=== PATIENT | female | born 1990 | race Caucasian/White ===

== ENCOUNTER 2016-09-17 17:43 | Emergency (ER) | payer OTHER ==
[2016-09-17 18:51] LABS: BASO % 0.4 % (0.0-1.0); EOS % 0.9 % (0.0-3.0); LARGE UNSTAINED CELL # 0.1 K/mm3 (0.0-0.4); LARGE UNSTAINED CELL % 1.8 % (0.0-4.0); LYMPH # 2.1 K/mm3 (1.5-6.5); LYMPH % 35.7 % (24.0-44.0); MEAN CORPUSCULAR HEMOGLOBIN 29.4 pg (27.0-33.0); MEAN CORPUSCULAR HGB CONC 33.2 g/dl (32.0-36.5); MEAN CORPUSCULAR VOLUME 88.7 fl (80.0-96.0); MONO # 0.3 K/mm3 (0.0-0.8); MONO % 4.5 % (0.0-5.0); NEUTROPHILS # 3.3 K/mm3 (1.8-7.7); NEUTROPHILS % 56.7 % (36.0-66.0); PLATELET COUNT, AUTOMATED 285 k/mm3 (150-450); RED CELL DISTRIBUTION WIDTH 11.5 % (11.5-14.5); WHITE BLOOD COUNT 5.8 K/mm3 (4.0-10.0)
[2016-09-17 19:19] LABS: ANION GAP 9 MEQ/L (8-16); BLOOD UREA NITROGEN 10 MG/DL (7-18); CALCIUM LEVEL 9.3 MG/DL (8.5-10.1); CARBON DIOXIDE LEVEL 27 MEQ/L (21-32); CHLORIDE LEVEL 108 MEQ/L (98-107); CREATININE FOR GFR 0.69 MG/DL (0.55-1.02); FREE T4 1.18 NG/DL (0.76-1.46); GLOMERULAR FILTRATION RATE > 60.0 (>60); GLUCOSE, FASTING 91 MG/DL (70-105); SODIUM LEVEL 144 MEQ/L (136-145)
[2016-09-17 19:30] LABS: ALBUMIN 4.2 GM/DL (3.2-5.2); ALBUMIN/GLOBULIN RATIO 1.31 (1.00-1.93); ALKALINE PHOSPHATASE 55 U/L (45-117); ALT/SGPT 15 U/L (12-78); AMYLASE 42 U/L (25-115); AST/SGOT 7 U/L (15-37); BILIRUBIN,DIRECT < 0.1 MG/DL (0.0-0.2); BILIRUBIN,TOTAL 0.3 MG/DL (0.2-1.0); TOTAL PROTEIN 7.4 GM/DL (6.4-8.2)
[2016-09-17 19:53] LABS: CONTROL LINE HCG INT CTR LINE PRESENT
--- NOTE | 2016-09-17 20:26 | EDDOCDS ---
Nurse's Notes [facility] Name: Cinthia Powers Age: 26 yrs Sex: Female : 1990 Arrival Date: 09/17/2016 Time: 17:43 Bed 15 Private MD: Alisha [facility] – [place] Diagnosis: Palpitations Presentation: 09/17 17:48 Presenting complaint: Patient states: "I have a lot of discomfort in my chest, I'm jc4 having shortness of breath, and feel sick to my stomach and I'm hot and cold". Symptoms for the past 45 minutes. States feels as if there is a tightness in her chest and breathing is "short". Adult Sepsis Screening: The patient does not have new or worsening altered mentation. Patient's respiratory rate is less than 22. Systolic blood pressure is greater than 100. Patient has a qSOFA score of 0- Negative Sepsis Screen. Suicide/Homicide risk assessment- the patient denies having any suicidal and/or homicidal ideations and does not present with any other emotional, behavioral or mental health complaints. Status: The patient is a dependent. Transition of care: patient was not received from another setting of care. 17:48 Acuity: LIZZETTE Level 3 jc4 17:48 Method Of Arrival: Walkin/Carried/Asstd jc4 17:55 Red Flag criteria, patient assessed and is suitable to finish the RCE Process. dls Triage Assessment: 17:52 General: Appears in no apparent distress. Pain: Pain currently is 8 out of 10 on a pain jc4 scale. Pt Declines HIV testing. 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 aspirin 81 mg Oral chew 1 tab once daily (Last dose: 09/17/2016 09:00) 2. diltiazem HCl 120 mg Oral cpER 1 cap once daily (Last dose: 09/17/2016 09:00) 3. Mucinex 600 mg oral Ta12 1 tab every 12 hours (Last dose: 09/17/2016 09:00) - PMHx: Asthma; Paroxysmal Afib; svt; Migraines; junctional rhythm; hypotension; - PSHx: Tonsillectomy; Cardiac Ablation; - Social history: Smoking status: Patient states former smoker of tobacco. No barriers to communication noted, The patient speaks fluent Japanese. - Family history: No immediate family members are acutely ill. - : The pt / caregiver states he / she is not on anticoagulants. Home medication list is obtained from the patient. - Exposure Risk Screening:: None identified. Screenin:13 Screening information is obtained from the patient. Fall risk: No risks identified. mb9 Assistance ADL's: requires no assistance with activities of daily living. Abuse/DV Screen: The patient / caregiver reports he/she is: not in a situation that causes fear, pain or injury. Nutritional screening: No deficits noted. Advance Directives: There is no active DNR order. home support is adequate. Assessment: 18:08 General: Appears in no apparent distress, comfortable, Behavior is appropriate for age, mb9 cooperative. Pain: Denies pain. Neurological: Level of Consciousness is awake, alert, Oriented to person, place, time. Cardiovascular: Rhythm is sinus rhythm No ectopy. Chest pain quality is pt complains of chest discomfort that started about an hour ago. pt reports she was outside for most of the day today. Respiratory: Airway is patent Respiratory effort is even, unlabored, Breath sounds are clear bilaterally. 18:13 General: At this time pt's SO came to the desk and said, "she is about to pass out". mb9 upon walking in the room pt appeared NAD and states, "I just got really hot and dizzy and felt like I was gonna pass out". . 20:10 Reassessment: Patient appears in no apparent distress at this time. Patient states mb9 feeling better. Patient states symptoms have improved. Adult Sepsis Screening: The patient does not have new or worsening altered mentation. Patient's respiratory rate is less than 22. Systolic blood pressure is greater than 100. Patient has a qSOFA score of 0- Negative Sepsis Screen. General: Appears in no apparent distress, comfortable, Behavior is appropriate for age, cooperative. Pain: Denies pain. Cardiovascular: Rhythm is sinus rhythm Chest pain quality is. Respiratory: Airway is patent Respiratory effort is even, unlabored. Vital Signs: 17:45 BP 133 / 78; Pulse 111; Resp 18; Temp 98.2(O); Pulse Ox 100% on R/A; Weight 63.5 kg elp (R); Height 5 ft. 3 in. (160.02 cm) (R); Pain 8/10; 18:02 BP 116 / 64 (auto/); mb9 18:04 Pulse 80 MON; Pulse Ox 100% ; mb9 18:10 BP 122 / 66 (auto/); mb9 18:11 Pulse 120 MON; Pulse Ox 100% ; mb9 18:32 BP 121 / 66 (auto/); mb9 18:32 Pulse 100 MON; Pulse Ox 94% ; mb9 20:09 BP 112 / 64 (auto/); mb9 20:09 Pulse 80 MON; Resp 17; Temp 98.3(TE); Pulse Ox 97% ; mb9 17:45 Body Mass Index 24.80 (63.50 kg, 160.02 cm) elp Vitals: 17:45 Log In Time: September 17, 2016 at 17:43. RN notified that patient meets Red Flag elp criteria. ED Course: 17:44 Patient visited by Helen Wilson PCA. elp 17:44 Alisha [facility] – [place] is Private Physician. elp 17:44 Patient moved to Waiting elp 17:46 Patient visited by Helen Wilson PCA. elp 17:48 Patient moved to Pre RCE elp 17:50 Triage Initiated jc4 17:53 Patient moved to 15 jc4 17:56 site monitor on. Pulse ox on. NIBP on. ct3 17:56 EKG done. (by ED staff). Reviewed by Mauro Chung MD. ct3 18:02 Mauro Chung MD is Attending Physician. ml 18:02 Patient visited by Mauro Chung MD. ml 18:06 Accompanied by Family Member, Patient has correct armband on for positive ct3 identification. Placed in gown. Bed in low position. Call light in reach. Side rails up X 1. 18:07 Patient visited by Debby Landis PCA. ct3 18:13 The patient / caregiver is instructed regarding the plan of care and ED course. mb9 18:44 Amylase Sent. mb9 18:44 Lipase Sent. mb9 18:44 Liver Profile Sent. mb9 18:45 TSH with Free T4 Sent. mb9 18:45 D-Dimer Quant Sent. mb9 18:45 Troponin Sent. mb9 18:45 CIP Sent. mb9 18:45 MED Profile Sent. mb9 18:45 CBC with Diff Sent. mb9 18:45 Inserted saline lock: 18 gauge in right antecubital area and blood collected. The mb9 patient tolerated the procedure well. 18:54 Patient visited by Debby Landis PCA. ct3 19:06 Patient visited by Chapincito Carvajal PCA. kb5 19:20 Attending Physician role handed off by Mauro Chung MD mm11 19:20 Kee Carrillo DO is Attending Physician. mm11 20:08 Patient visited by Kee Carrillo DO. mm11 20:10 Alf Erickson MD is Referral Physician. mm11 20:23 Discontinued IV lock intact, bleeding controlled, pressure dressing applied, No mb9 redness/swelling at site. No procedures done that require assistance. 20:24 [facility] Payment Agreement was scanned into [employer] and attached to record. [email or web address] Administered Medications: 18:45 Drug: NS 0.9% 1000 ml [sodium chloride 0.9 % intravenous solution] Route: IV; Rate: mb9 bolus; Site: right antecubital; 20:25 Follow up: IV Intake: 1000ml mb9 Intake: 20:25 IV: 1000.00ml; Total: 1000.00ml. mb9 Output: 19:14 Urine: 200.00ml (Voided); Total: 200.00ml. mb9 Order Results: Lab Order: CBC with Diff; SPEC'M 09/17/16 18:42 Test: WHITE BLOOD COUNT; Value: 5.8; Range: 4.0-10.0; Units: K/mm3; Status: F Test: RED BLOOD COUNT; Value: 4.40; Range: 4.00-5.40; Units: M/mm3; Status: F Test: HEMOGLOBIN; Value: 13.0; Range: 12.0-16.0; Units: g/dl; Status: F Test: HEMATOCRIT; Value: 39.1; Range: 36.0-47.0; Units: %; Status: F Test: MEAN CORPUSCULAR VOLUME; Value: 88.7; Range: 80.0-96.0; Units: fl; Status: F Test: MEAN CORPUSCULAR HEMOGLOBIN; Value: 29.4; Range: 27.0-33.0; Units: pg; Status: F Test: MEAN CORPUSCULAR HGB CONC; Value: 33.2; Range: 32.0-36.5; Units: g/dl; Status: F Test: RED CELL DISTRIBUTION WIDTH; Value: 11.5; Range: 11.5-14.5; Units: %; Status: F Test: PLATELET COUNT, AUTOMATED; Value: 285; Range: 150-450; Units: k/mm3; Status: F Test: NEUTROPHILS %; Value: 56.7; Range: 36.0-66.0; Units: %; Status: F Test: LYMPH %; Value: 35.7; Range: 24.0-44.0; Units: %; Status: F Test: MONO %; Value: 4.5; Range: 0.0-5.0; Units: %; Status: F Test: EOS %; Value: 0.9; Range: 0.0-3.0; Units: %; Status: F Test: BASO %; Value: 0.4; Range: 0.0-1.0; Units: %; Status: F Test: LARGE UNSTAINED CELL %; Value: 1.8; Range: 0.0-4.0; Units: %; Status: F Test: NEUTROPHILS #; Value: 3.3; Range: 1.8-7.7; Units: K/mm3; Status: F Test: LYMPH #; Value: 2.1; Range: 1.5-6.5; Units: K/mm3; Status: F Test: MONO #; Value: 0.3; Range: 0.0-0.8; Units: K/mm3; Status: F Test: EOS #; Value: 0.0; Range: 0.0-0.50; Units: K/mm3; Status: F Test: BASO #; Value: 0.0; Range: 0.0-0.2; Units: K/mm3; Status: F Test: LARGE UNSTAINED CELL #; Value: 0.1; Range: 0.0-0.4; Units: K/mm3; Status: F Lab Order: MED Profile; [facility]' 09/17/16 18:42 Test: GLUCOSE, FASTING; Value: 91; Range: 70-105; Units: MG/DL; Status: F Test: BLOOD UREA NITROGEN; Value: 10; Range: 7-18; Units: MG/DL; Status: F Test: CREATININE FOR GFR; Value: 0.69; Range: 0.55-1.02; Units: MG/DL; Status: F Test: GLOMERULAR FILTRATION RATE; Value: > 60.0; Range: >60; Status: F Test: SODIUM LEVEL; Value: 144; Range: 136-145; Units: MEQ/L; Status: F Test: POTASSIUM SERUM; Value: 4.0; Range: 3.5-5.1; Units: MEQ/L; Status: F Test: CHLORIDE LEVEL; Value: 108; Range: 98-107; Abnormal: Above high normal; Units: MEQ/L; Status: F Test: CARBON DIOXIDE LEVEL; Value: 27; Range: 21-32; Units: MEQ/L; Status: F Test: ANION GAP; Value: 9; Range: 8-16; Units: MEQ/L; Status: F Test: CALCIUM LEVEL; Value: 9.3; Range: 8.5-10.1; Units: MG/DL; Status: F Test Note: ; Units are mL/min/1.73 m2 Chronic Kidney Disease Staging per NKF: Stage I & II GFR >=60 Normal to Mildly Decreased Stage III GFR 30-59 Moderately Decreased Stage IV GFR 15-29 Severely Decreased Stage V GFR <15 Very Little GFR Left ESRD GFR <15 on SALES REPRESENTATIVE ADVERTISING Lab Order: CIP; SPEC'M 09/17/16 18:42 Test: CPK CREATINE PHOSPHOKINASE; Value: 56; Range: 26-192; Units: U/L; Status: F Test: CK-MB VALUE MASS; Value: 1.0; Range: 0.0-3.6; Units: NG/ML; Status: F Test: MB/CK RELATIVE INDEX; Value: 1.78; Range: < OR =4; Status: F Test Note: ; DIAGNOSIS CRITERIA MMB ng/ml Relative Index (RI) NON-AMI < or = 5 N/A B[place]ONE > 5 < or = 4 AMI > 5 > 4 Lab Order: Troponin; SPEC'M 09/17/16 18:42 Test: TROPONIN I; Value: < 0.02; Range: < 0.10; Units: NG/ML; Status: F Test Note: ; Troponin I Reference Interval for Siemens Solyndra LOCI: 99th Percentile= 0.00-0.045 ng/ml Risk Stratification: <= 0.10 ng/ml Decreased Risk for Adverse Clinical Events. 0.10-1.50 ng/ml Increased Risk for Adverse Clinical Events. Evaluation of additional criterion and/or repeat testing in 2-6 hours is suggested to rule out myocardial damage. >= 1.50 ng/ml Indicative of Myocardial Injury. Lab Order: D-Dimer Quant; SPEC' 09/17/16 18:43 Test: D-DIMER QUANT; Value: < 270.0; Range: <500; Units: ng/ml; Status: F Lab Order: TSH with Free T4; SPEC' 09/17/16 18:42 Test: THYROID STIMULATING HORMONE; Value: 1.500; Range: 0.358-3.740; Units: uIU/ML; Status: F Test: FREE T4; Value: 1.18; Range: 0.76-1.46; Units: NG/DL; Status: F Lab Order: Liver Profile; [facility] 09/17/16 18:42 Test: AST/SGOT; Value: 7; Range: 15-37; Abnormal: Below low normal; Units: U/L; Status: F Test: ALT/SGPT; Value: 15; Range: 12-78; Units: U/L; Status: F Test: ALKALINE PHOSPHATASE; Value: 55; Range: 45-117; Units: U/L; Status: F Test: BILIRUBIN,TOTAL; Value: 0.3; Range: 0.2-1.0; Units: MG/DL; Status: F Test: BILIRUBIN,DIRECT; Value: < 0.1; Range: 0.0-0.2; Units: MG/DL; Status: F Test: TOTAL PROTEIN; Value: 7.4; Range: 6.4-8.2; Units: GM/DL; Status: F Test: ALBUMIN; Value: 4.2; Range: 3.2-5.2; Units: GM/DL; Status: F Test: ALBUMIN/GLOBULIN RATIO; Value: 1.31; Range: 1.00-1.93; Status: F Lab Order: Lipase; [facility]' 09/17/16 18:42 Test: LIPASE; Value: 136; Range: 73-393; Units: U/L; Status: F Lab Order: Amylase; SPEC'M 09/17/16 18:42 Test: AMYLASE; Value: 42; Range: 25-115; Units: U/L; Status: F Lab Order: MAGNESIUM LEVEL; SPEC'M 09/17/16 18:42 Test: MAGNESIUM LEVEL; Value: 2.0; Range: 1.8-2.4; Units: MG/DL; Status: F Lab Order: HCG, QUALITATIVE; SPEC'M 09/17/16 18:42 Test: HCG, SERUM QUALITATIVE; Value: NEGATIVE; Range: NEGATIVE; Status: F Outcome: 20:10 Discharge ordered by Provider. mm11 20:23 Discharge Assessment: patient administered narcotics - no. The following High Risk mb9 Discharge criteria are identified: None. Discharged to home ambulatory, with significant other. Condition: good Condition: stable Condition: improved. Discharge instructions given to patient, Instructed on discharge instructions, follow up and referral plans. medication usage, Demonstrated understanding of instructions, medications, Pt was receptive of discharge instructions/ teaching. No special radiology studies were completed. Property :Personal belongings accompany Pt. 20:24 Patient left the ED. mb9 Signatures: Mauro Chung MD MD ml Scott, Debra, RN RN Chapincito Art, SALES EXEC SALES EXEC kb5 Kee Carrillo DO DO mm11 Su Paredes, RN RN jc4 Debby Landis, SALES EXEC SALES EXEC ct3 Helen Wilson, SALES EXEC SALES EXEC elp Shaheen Mejia RN RN mb9 Samantha Wiseman, Reg Reg ks16 MTDD
--- NOTE | 2016-09-17 20:26 | EDDOCDS ---
Physician Documentation [facility] Name: Cinthia Powers Age: 26 yrs Sex: Female : 1990 Arrival Date: 09/17/2016 Time: 17:43 Bed 15 Private MD: Alisha [facility] [place] Disposition: 09/17/16 20:10 Discharged to Home/Self Care. Impression: Palpitations. - Condition is Stable. - Discharge Instructions: Palpitations, Palpitations, [id number]. - Medication Reconciliation, Local Pharmacy Hours form. - Follow up: Alf Erickson MD; When: As previously arranged; Reason: Continuance of care. - Problem is an acute exacerbation. - Symptoms have improved. Historical: - Allergies: Sudafedsyncope; - Home Meds: 1. aspirin 81 mg Oral chew 1 tab once daily (Last dose: 09/17/2016 09:00) 2. diltiazem HCl 120 mg Oral cpER 1 cap once daily (Last dose: 09/17/2016 09:00) 3. Mucinex 600 mg oral Ta12 1 tab every 12 hours (Last dose: 09/17/2016 09:00) - PMHx: Asthma; Paroxysmal Afib; svt; Migraines; junctional rhythm; hypotension; - PSHx: Tonsillectomy; Cardiac Ablation; - Social history: Smoking status: Patient states former smoker of tobacco. No barriers to communication noted, The patient speaks fluent Lithuanian. - Family history: No immediate family members are acutely ill. - : The pt / caregiver states he / she is not on anticoagulants. Home medication list is obtained from the patient. - Exposure Risk Screening:: None identified. 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 3 in. (160.02 cm) (R); Pain 8/10; 18:02 BP 116 / 64 (auto/); mb9 18:04 Pulse 80 MON; Pulse Ox 100% ; mb9 18:10 BP 122 / 66 (auto/); mb9 18:11 Pulse 120 MON; Pulse Ox 100% ; mb9 18:32 BP 121 / 66 (auto/); mb9 18:32 Pulse 100 MON; Pulse Ox 94% ; mb9 20:09 BP 112 / 64 (auto/); mb9 20:09 Pulse 80 MON; Resp 17; Temp 98.3(TE); Pulse Ox 97% ; mb9 17:45 Body Mass Index 24.80 (63.50 kg, 160.02 cm) elp MDM: 17:55 ECG WITH READING ER PHYS+CARDIAG ordered. EDMS 18:23 IV Saline Lock ordered. ml 18:23 Resource Efficiency Manager/Pulse Ox/q 15 min VS ordered. ml 18:23 Rhythm Strip to chart ordered. ml 18:23 NS 0.9% 1000 ml IV at bolus once ordered. ml 18:24 CBC with Diff Ordered. EDMS 18:24 MED Profile Ordered. EDMS 18:24 CIP Ordered. EDMS 18:24 Troponin Ordered. EDMS 18:24 D-Dimer Quant Ordered. EDMS 18:24 TSH with Free T4 Ordered. EDMS 18:24 Liver Profile Ordered. EDMS 18:24 Lipase Ordered. EDMS 18:24 Amylase Ordered. EDMS 18:25 Chest, 1 View Ordered. EDMS 19:13 CBC with Diff Reviewed. ml 19:13 D-Dimer Quant Reviewed. ml 19:34 MED Profile Reviewed. mm11 19:34 Liver Profile Reviewed. mm11 19:34 CIP Reviewed. mm11 19:34 Troponin Reviewed. mm11 19:34 TSH with Free T4 Reviewed. mm11 19:34 Lipase Reviewed. mm11 19:34 Amylase Reviewed. mm11 19:47 HCG, QUALITATIVE Ordered. EDMS 19:47 HCG, QUALITATIVE Reviewed. mm11 19:48 MED Profile Reviewed. mm11 19:48 Liver Profile Reviewed. mm11 19:48 CBC with Diff Reviewed. mm11 19:48 CIP Reviewed. mm11 19:48 Troponin Reviewed. mm11 19:48 D-Dimer Quant Reviewed. mm11 19:48 TSH with Free T4 Reviewed. mm11 19:48 Lipase Reviewed. mm11 19:48 Amylase Reviewed. mm11 19:48 MAGNESIUM LEVEL Reviewed. mm11 19:58 Liver Profile Reviewed. mm11 19:58 Lipase Reviewed. mm11 19:58 Amylase Reviewed. mm11 19:58 HCG, QUALITATIVE Reviewed. mm11 20:23 Financial registration complete. ks16 20:24 [facility] [place] Payment Agreement was scanned into [employer] and attached to record. [email or web address] Administered Medications: 18:45 Drug: NS 0.9% 1000 ml [sodium chloride 0.9 % intravenous solution] Route: IV; Rate: mb9 bolus; Site: right antecubital; 20:25 Follow up: IV Intake: 1000ml mb9 Signatures: Dispatcher [employer] EDMS Mauro Chung MD MD ml Kee Carrillo, DO mm11 Su Paredes RN RN jc4 Shaheen Mejia RN RN mb9 Samantha Wiseman, Reg Reg ks16 The chart was reviewed and I authenticate all verbal orders and agree with the evaluation and treatment provided.Corrections: (The following items were deleted from the chart) 19:39 19:36 MAGNESIUM LEVEL+LAB ordered. EDMS EDMS 19:47 19:41 HCG, QUALITATIVE+LAB ordered. EDMS EDMS Attachments: 20:24 [facility] Payment Agreement ks16 MTDD
--- NOTE | 2016-09-17 23:06 | ECGEPIP ---
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
--- NOTE | 2016-09-18 07:27 | REP ---
Chest x-ray: Single view. History: Chest pain. Comparison chest x-ray August 25, 2016. Findings: EKG monitoring electrode overlies the chest. The lungs are well inflated and clear. Pleural angles are sharp. Heart size is normal. Pulmonary vasculature is not increased. No bony abnormality is seen. Impression: Negative portable chest x-ray. Signed by Chilo Phililps MD 09/18/2016 07:37 A
--- NOTE | 2016-09-20 11:39 | EDDOCDS ---
Physician Documentation [facility] Name: Cinthia Powers Age: 26 yrs Sex: Female : 1990 Arrival Date: 09/17/2016 Time: 17:43 Bed 15 Private MD: [place] [facility] [place]position: 09/17/16 20:10 Discharged to Home/Self Care. Impression: Palpitations. - Condition is Stable. - Discharge Instructions: Palpitations, Palpitations, [id number]. - Medication Reconciliation, Local Pharmacy Hours form. - Follow up: Alf Erickson MD; When: As previously arranged; Reason: Continuance of care. - Problem is an acute exacerbation. - Symptoms have improved. Historical: - Allergies: Sudafedsyncope; - Home Meds: 1. aspirin 81 mg Oral chew 1 tab once daily (Last dose: 09/17/2016 09:00) 2. diltiazem HCl 120 mg Oral cpER 1 cap once daily (Last dose: 09/17/2016 09:00) 3. Mucinex 600 mg oral Ta12 1 tab every 12 hours (Last dose: 09/17/2016 09:00) - PMHx: Asthma; Paroxysmal Afib; svt; Migraines; junctional rhythm; hypotension; - PSHx: Tonsillectomy; Cardiac Ablation; - Social history: Smoking status: Patient states former smoker of tobacco. No barriers to communication noted, The patient speaks fluent Turkish. - Family history: No immediate family members are acutely ill. - : The pt / caregiver states he / she is not on anticoagulants. Home medication list is obtained from the patient. - Exposure Risk Screening:: None identified. 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 3 in. (160.02 cm) (R); Pain 8/10; 18:02 BP 116 / 64 (auto/); mb9 18:04 Pulse 80 MON; Pulse Ox 100% ; mb9 18:10 BP 122 / 66 (auto/); mb9 18:11 Pulse 120 MON; Pulse Ox 100% ; mb9 18:32 BP 121 / 66 (auto/); mb9 18:32 Pulse 100 MON; Pulse Ox 94% ; mb9 20:09 BP 112 / 64 (auto/); mb9 20:09 Pulse 80 MON; Resp 17; Temp 98.3(TE); Pulse Ox 97% ; mb9 17:45 Body Mass Index 24.80 (63.50 kg, 160.02 cm) elp MDM: 17:55 ECG WITH READING ER PHYS+CARDIAG ordered. EDMS 18:23 IV Saline Lock ordered. ml 18:23 Business Risk Analyst/Pulse Ox/q 15 min VS ordered. ml 18:23 Rhythm Strip to chart ordered. ml 18:23 NS 0.9% 1000 ml IV at bolus once ordered. ml 18:24 CBC with Diff Ordered. EDMS 18:24 MED Profile Ordered. EDMS 18:24 CIP Ordered. EDMS 18:24 Troponin Ordered. EDMS 18:24 D-Dimer Quant Ordered. EDMS 18:24 TSH with Free T4 Ordered. EDMS 18:24 Liver Profile Ordered. EDMS 18:24 Lipase Ordered. EDMS 18:24 Amylase Ordered. EDMS 18:25 Chest, 1 View Ordered. EDMS 19:13 CBC with Diff Reviewed. ml 19:13 D-Dimer Quant Reviewed. ml 19:34 MED Profile Reviewed. mm11 19:34 Liver Profile Reviewed. mm11 19:34 CIP Reviewed. mm11 19:34 Troponin Reviewed. mm11 19:34 TSH with Free T4 Reviewed. mm11 19:34 Lipase Reviewed. mm11 19:34 Amylase Reviewed. mm11 19:47 HCG, QUALITATIVE Ordered. EDMS 19:47 HCG, QUALITATIVE Reviewed. mm11 19:48 MED Profile Reviewed. mm11 19:48 Liver Profile Reviewed. mm11 19:48 CBC with Diff Reviewed. mm11 19:48 CIP Reviewed. mm11 19:48 Troponin Reviewed. mm11 19:48 D-Dimer Quant Reviewed. mm11 19:48 TSH with Free T4 Reviewed. mm11 19:48 Lipase Reviewed. mm11 19:48 Amylase Reviewed. mm11 19:48 MAGNESIUM LEVEL Reviewed. mm11 19:58 Liver Profile Reviewed. mm11 19:58 Lipase Reviewed. mm11 19:58 Amylase Reviewed. mm11 19:58 HCG, QUALITATIVE Reviewed. mm11 20:23 Financial registration complete. [email or web address] 20:24 [facility] [place] Payment Agreement was scanned into [employer] and attached to record. [email or web address] 09/18 08:01 T-Sheet-- Draft Copy was scanned into [employer] and attached to record. [facility] 11:23 ECG/EKG was scanned into [employer] and attached to record. gb Administered Medications: 09/17 18:45 Drug: NS 0.9% 1000 ml [sodium chloride 0.9 % intravenous solution] Route: IV; Rate: mb9 bolus; Site: right antecubital; 20:25 Follow up: IV Intake: 1000ml mb9 Signatures: Dispatcher [employer] EDMS Mauro Chung MD MD Mary Coleman, Reg Reg gb Kee Carrillo, DO mm11 Su Paredes RN RN jc4 Shaheen Mejia RN RN mb9 Samantha Wiseman, Reg Reg ks16 Divine Hernández The chart was reviewed and I authenticate all verbal orders and agree with the evaluation and treatment provided.Corrections: (The following items were deleted from the chart) 19:39 19:36 MAGNESIUM LEVEL+LAB ordered. EDMS EDMS 19:47 19:41 HCG, QUALITATIVE+LAB ordered. EDMS EDMS Attachments: 20:24 [facility] Payment Agreement [email or web address] 09/18 08:01 T-Sheet-- Draft Copy [facility] 11:23 ECG/EKG Chart Complete MTDD
--- NOTE | 2016-09-20 11:39 | EDDOCDS ---
Physician Documentation [facility] Name: Cinthia Powers Age: 26 yrs Sex: Female : 1990 Arrival Date: 09/17/2016 Time: 17:43 Bed 15 Private MD: Alisha [facility] Disposition: 09/17/16 20:10 Discharged to Home/Self Care. Impression: Palpitations. - Condition is Stable. - Discharge Instructions: Palpitations, Palpitations, [id number]. - Medication Reconciliation, Local Pharmacy Hours form. - Follow up: Alf Erickson MD; When: As previously arranged; Reason: Continuance of care. - Problem is an acute exacerbation. - Symptoms have improved. Historical: - Allergies: Sudafedsyncope; - Home Meds: 1. aspirin 81 mg Oral chew 1 tab once daily (Last dose: 09/17/2016 09:00) 2. diltiazem HCl 120 mg Oral cpER 1 cap once daily (Last dose: 09/17/2016 09:00) 3. Mucinex 600 mg oral Ta12 1 tab every 12 hours (Last dose: 09/17/2016 09:00) - PMHx: Asthma; Paroxysmal Afib; svt; Migraines; junctional rhythm; hypotension; - PSHx: Tonsillectomy; Cardiac Ablation; - Social history: Smoking status: Patient states former smoker of tobacco. No barriers to communication noted, The patient speaks fluent Armenian. - Family history: No immediate family members are acutely ill. - : The pt / caregiver states he / she is not on anticoagulants. Home medication list is obtained from the patient. - Exposure Risk Screening:: None identified. 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 3 in. (160.02 cm) (R); Pain 8/10; 18:02 BP 116 / 64 (auto/); mb9 18:04 Pulse 80 MON; Pulse Ox 100% ; mb9 18:10 BP 122 / 66 (auto/); mb9 18:11 Pulse 120 MON; Pulse Ox 100% ; mb9 18:32 BP 121 / 66 (auto/); mb9 18:32 Pulse 100 MON; Pulse Ox 94% ; mb9 20:09 BP 112 / 64 (auto/); mb9 20:09 Pulse 80 MON; Resp 17; Temp 98.3(TE); Pulse Ox 97% ; mb9 17:45 Body Mass Index 24.80 (63.50 kg, 160.02 cm) elp MDM: 17:55 ECG WITH READING ER PHYS+CARDIAG ordered. EDMS 18:23 IV Saline Lock ordered. ml 18:23 Head Inspector And Center Marker/Pulse Ox/q 15 min VS ordered. ml 18:23 Rhythm Strip to chart ordered. ml 18:23 NS 0.9% 1000 ml IV at bolus once ordered. ml 18:24 CBC with Diff Ordered. EDMS 18:24 MED Profile Ordered. EDMS 18:24 CIP Ordered. EDMS 18:24 Troponin Ordered. EDMS 18:24 D-Dimer Quant Ordered. EDMS 18:24 TSH with Free T4 Ordered. EDMS 18:24 Liver Profile Ordered. EDMS 18:24 Lipase Ordered. EDMS 18:24 Amylase Ordered. EDMS 18:25 Chest, 1 View Ordered. EDMS 19:13 CBC with Diff Reviewed. ml 19:13 D-Dimer Quant Reviewed. ml 19:34 MED Profile Reviewed. mm11 19:34 Liver Profile Reviewed. mm11 19:34 CIP Reviewed. mm11 19:34 Troponin Reviewed. mm11 19:34 TSH with Free T4 Reviewed. mm11 19:34 Lipase Reviewed. mm11 19:34 Amylase Reviewed. mm11 19:47 HCG, QUALITATIVE Ordered. EDMS 19:47 HCG, QUALITATIVE Reviewed. mm11 19:48 MED Profile Reviewed. mm11 19:48 Liver Profile Reviewed. mm11 19:48 CBC with Diff Reviewed. mm11 19:48 CIP Reviewed. mm11 19:48 Troponin Reviewed. mm11 19:48 D-Dimer Quant Reviewed. mm11 19:48 TSH with Free T4 Reviewed. mm11 19:48 Lipase Reviewed. mm11 19:48 Amylase Reviewed. mm11 19:48 MAGNESIUM LEVEL Reviewed. mm11 19:58 Liver Profile Reviewed. mm11 19:58 Lipase Reviewed. mm11 19:58 Amylase Reviewed. mm11 19:58 HCG, QUALITATIVE Reviewed. mm11 20:23 Financial registration complete. ks16 20:24 [facility] Agreement was scanned into [employer] and attached to record. [email or web address] 09/18 08:01 T-Sheet-- Draft Copy was scanned into [employer] and attached to record. [facility] 11:23 ECG/EKG was scanned into [employer] and attached to record. gb Administered Medications: 09/17 18:45 Drug: NS 0.9% 1000 ml [sodium chloride 0.9 % intravenous solution] Route: IV; Rate: mb9 bolus; Site: right antecubital; 20:25 Follow up: IV Intake: 1000ml mb9 Signatures: Dispatcher [employer] EDMS Mauro Chung MD MD Mary Coleman, Reg Reg gb Kee Carrillo, DO mm11 Su Paredes RN RN jc4 Shaheen Mejia RN RN mb9 Samantha Wiseman, Reg Reg ks16 Divine Hernández The chart was reviewed and I authenticate all verbal orders and agree with the evaluation and treatment provided.Corrections: (The following items were deleted from the chart) 19:39 19:36 MAGNESIUM LEVEL+LAB ordered. EDMS EDMS 19:47 19:41 HCG, QUALITATIVE+LAB ordered. EDMS EDMS Attachments: 20:24 [facility] Payment Agreement [email or web address] 09/18 08:01 T-Sheet-- Draft Copy [facility] 11:23 ECG/EKG Chart Complete MTDD
--- NOTE | 2016-09-20 11:40 | EDDOCDS ---
Nurse's Notes [facility] Name: Cinthia Michaels Age: 26 yrs Sex: Female : 1990 Arrival Date: 09/17/2016 Time: 17:43 Bed 15 Private MD: Alisha [facility] Diagnosis: Palpitations Presentation: 09/17 17:48 Presenting complaint: Patient states: "I have a lot of discomfort in my chest, I'm jc4 having shortness of breath, and feel sick to my stomach and I'm hot and cold". Symptoms for the past 45 minutes. States feels as if there is a tightness in her chest and breathing is "short". Adult Sepsis Screening: The patient does not have new or worsening altered mentation. Patient's respiratory rate is less than 22. Systolic blood pressure is greater than 100. Patient has a qSOFA score of 0- Negative Sepsis Screen. Suicide/Homicide risk assessment- the patient denies having any suicidal and/or homicidal ideations and does not present with any other emotional, behavioral or mental health complaints. Status: The patient is a dependent. Transition of care: patient was not received from another setting of care. 17:48 Acuity: LIZZETTE Level 3 jc4 17:48 Method Of Arrival: Walkin/Carried/Asstd jc4 17:55 Red Flag criteria, patient assessed and is suitable to finish the RCE Process. dls Triage Assessment: 17:52 General: Appears in no apparent distress. Pain: Pain currently is 8 out of 10 on a pain jc4 scale. Pt Declines HIV testing. 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 aspirin 81 mg Oral chew 1 tab once daily (Last dose: 09/17/2016 09:00) 2. diltiazem HCl 120 mg Oral cpER 1 cap once daily (Last dose: 09/17/2016 09:00) 3. Mucinex 600 mg oral Ta12 1 tab every 12 hours (Last dose: 09/17/2016 09:00) - PMHx: Asthma; Paroxysmal Afib; svt; Migraines; junctional rhythm; hypotension; - PSHx: Tonsillectomy; Cardiac Ablation; - Social history: Smoking status: Patient states former smoker of tobacco. No barriers to communication noted, The patient speaks fluent [place]. - Family history: No immediate family members are acutely ill. - : The pt / caregiver states he / she is not on anticoagulants. Home medication list is obtained from the patient. - Exposure Risk Screening:: None identified. Screenin:13 Screening information is obtained from the patient. Fall risk: No risks identified. mb9 Assistance ADL's: requires no assistance with activities of daily living. Abuse/DV Screen: The patient / caregiver reports he/she is: not in a situation that causes fear, pain or injury. Nutritional screening: No deficits noted. Advance Directives: There is no active DNR order. home support is adequate. Assessment: 18:08 General: Appears in no apparent distress, comfortable, Behavior is appropriate for age, mb9 cooperative. Pain: Denies pain. Neurological: Level of Consciousness is awake, alert, Oriented to person, place, time. Cardiovascular: Rhythm is sinus rhythm No ectopy. Chest pain quality is pt complains of chest discomfort that started about an hour ago. pt reports she was outside for most of the day today. Respiratory: Airway is patent Respiratory effort is even, unlabored, Breath sounds are clear bilaterally. 18:13 General: At this time pt's SO came to the desk and said, "she is about to pass out". mb9 upon walking in the room pt appeared NAD and states, "I just got really hot and dizzy and felt like I was gonna pass out". . 20:10 Reassessment: Patient appears in no apparent distress at this time. Patient states mb9 feeling better. Patient states symptoms have improved. Adult Sepsis Screening: The patient does not have new or worsening altered mentation. Patient's respiratory rate is less than 22. Systolic blood pressure is greater than 100. Patient has a qSOFA score of 0- Negative Sepsis Screen. General: Appears in no apparent distress, comfortable, Behavior is appropriate for age, cooperative. Pain: Denies pain. Cardiovascular: Rhythm is sinus rhythm Chest pain quality is. Respiratory: Airway is patent Respiratory effort is even, unlabored. Vital Signs: 17:45 BP 133 / 78; Pulse 111; Resp 18; Temp 98.2(O); Pulse Ox 100% on R/A; Weight 63.5 kg elp (R); Height 5 ft. 3 in. (160.02 cm) (R); Pain 8/10; 18:02 BP 116 / 64 (auto/); mb9 18:04 Pulse 80 MON; Pulse Ox 100% ; mb9 18:10 BP 122 / 66 (auto/); mb9 18:11 Pulse 120 MON; Pulse Ox 100% ; mb9 18:32 BP 121 / 66 (auto/); mb9 18:32 Pulse 100 MON; Pulse Ox 94% ; mb9 20:09 BP 112 / 64 (auto/); mb9 20:09 Pulse 80 MON; Resp 17; Temp 98.3(TE); Pulse Ox 97% ; mb9 17:45 Body Mass Index 24.80 (63.50 kg, 160.02 cm) elp Vitals: 17:45 Log In Time: September 17, 2016 at 17:43. RN notified that patient meets Red Flag elp criteria. ED Course: 17:44 Patient visited by Helen Wilson PCA. elp 17:44 Alisha [facility] is Private Physician. elp 17:44 Patient moved to Waiting elp 17:46 Patient visited by Helen Wilson PCA. elp 17:48 Patient moved to Pre RCE elp 17:50 Triage Initiated jc4 17:53 Patient moved to 15 jc4 17:56 hospital monitor on. Pulse ox on. NIBP on. ct3 17:56 EKG done. (by ED staff). Reviewed by Mauro Chung MD. ct3 18:02 Mauro Chung MD is Attending Physician. ml 18:02 Patient visited by Mauro Chung MD. ml 18:06 Accompanied by Family Member, Patient has correct armband on for positive ct3 identification. Placed in gown. Bed in low position. Call light in reach. Side rails up X 1. 18:07 Patient visited by Debby Landis PCA. ct3 18:13 The patient / caregiver is instructed regarding the plan of care and ED course. mb9 18:44 Amylase Sent. mb9 18:44 Lipase Sent. mb9 18:44 Liver Profile Sent. mb9 18:45 TSH with Free T4 Sent. mb9 18:45 D-Dimer Quant Sent. mb9 18:45 Troponin Sent. mb9 18:45 CIP Sent. mb9 18:45 MED Profile Sent. mb9 18:45 CBC with Diff Sent. mb9 18:45 Inserted saline lock: 18 gauge in right antecubital area and blood collected. The mb9 patient tolerated the procedure well. 18:54 Patient visited by Debby Landis PCA. ct3 19:06 Patient visited by Chapincito Carvajal PCA. kb5 19:20 Attending Physician role handed off by Mauro Chung MD mm11 19:20 Kee Carrillo DO is Attending Physician. mm11 20:08 Patient visited by Kee Carrillo DO. mm11 20:10 Alf Erickson MD is Referral Physician. mm11 20:23 Discontinued IV lock intact, bleeding controlled, pressure dressing applied, No mb9 redness/swelling at site. No procedures done that require assistance. 20:24 [facility] Payment Agreement was scanned into [employer] and attached to record. ks 23:42 EKG-ADULT Returned. EDMS 09/18 07:29 Chest, 1 View Returned. EDMS 08:01 T-Sheet-- Draft Copy was scanned into [employer] and attached to record. [facility] 11:23 ECG/EKG was scanned into [employer] and attached to record. gb Administered Medications: 09/17 18:45 Drug: NS 0.9% 1000 ml [sodium chloride 0.9 % intravenous solution] Route: IV; Rate: mb9 bolus; Site: right antecubital; 20:25 Follow up: IV Intake: 1000ml mb9 Intake: 20:25 IV: 1000.00ml; Total: 1000.00ml. mb9 Output: 19:14 Urine: 200.00ml (Voided); Total: 200.00ml. mb9 Order Results: Lab Order: CBC with Diff; SPEC'M 09/17/16 18:42 Test: WHITE BLOOD COUNT; Value: 5.8; Range: 4.0-10.0; Units: K/mm3; Status: F Test: RED BLOOD COUNT; Value: 4.40; Range: 4.00-5.40; Units: M/mm3; Status: F Test: HEMOGLOBIN; Value: 13.0; Range: 12.0-16.0; Units: g/dl; Status: F Test: HEMATOCRIT; Value: 39.1; Range: 36.0-47.0; Units: %; Status: F Test: MEAN CORPUSCULAR VOLUME; Value: 88.7; Range: 80.0-96.0; Units: fl; Status: F Test: MEAN CORPUSCULAR HEMOGLOBIN; Value: 29.4; Range: 27.0-33.0; Units: pg; Status: F Test: MEAN CORPUSCULAR HGB CONC; Value: 33.2; Range: 32.0-36.5; Units: g/dl; Status: F Test: RED CELL DISTRIBUTION WIDTH; Value: 11.5; Range: 11.5-14.5; Units: %; Status: F Test: PLATELET COUNT, AUTOMATED; Value: 285; Range: 150-450; Units: k/mm3; Status: F Test: NEUTROPHILS %; Value: 56.7; Range: 36.0-66.0; Units: %; Status: F Test: LYMPH %; Value: 35.7; Range: 24.0-44.0; Units: %; Status: F Test: MONO %; Value: 4.5; Range: 0.0-5.0; Units: %; Status: F Test: EOS %; Value: 0.9; Range: 0.0-3.0; Units: %; Status: F Test: BASO %; Value: 0.4; Range: 0.0-1.0; Units: %; Status: F Test: LARGE UNSTAINED CELL %; Value: 1.8; Range: 0.0-4.0; Units: %; Status: F Test: NEUTROPHILS #; Value: 3.3; Range: 1.8-7.7; Units: K/mm3; Status: F Test: LYMPH #; Value: 2.1; Range: 1.5-6.5; Units: K/mm3; Status: F Test: MONO #; Value: 0.3; Range: 0.0-0.8; Units: K/mm3; Status: F Test: EOS #; Value: 0.0; Range: 0.0-0.50; Units: K/mm3; Status: F Test: BASO #; Value: 0.0; Range: 0.0-0.2; Units: K/mm3; Status: F Test: LARGE UNSTAINED CELL #; Value: 0.1; Range: 0.0-0.4; Units: K/mm3; Status: F Lab Order: MED Profile; SPEC09/17/16 18:42 Test: GLUCOSE, FASTING; Value: 91; Range: 70-105; Units: MG/DL; Status: F Test: BLOOD UREA NITROGEN; Value: 10; Range: 7-18; Units: MG/DL; Status: F Test: CREATININE FOR GFR; Value: 0.69; Range: 0.55-1.02; Units: MG/DL; Status: F Test: GLOMERULAR FILTRATION RATE; Value: > 60.0; Range: >60; Status: F Test: SODIUM LEVEL; Value: 144; Range: 136-145; Units: MEQ/L; Status: F Test: POTASSIUM SERUM; Value: 4.0; Range: 3.5-5.1; Units: MEQ/L; Status: F Test: CHLORIDE LEVEL; Value: 108; Range: 98-107; Abnormal: Above high normal; Units: MEQ/L; Status: F Test: CARBON DIOXIDE LEVEL; Value: 27; Range: 21-32; Units: MEQ/L; Status: F Test: ANION GAP; Value: 9; Range: 8-16; Units: MEQ/L; Status: F Test: CALCIUM LEVEL; Value: 9.3; Range: 8.5-10.1; Units: MG/DL; Status: F Test Note: ; Units are mL/min/1.73 m2 Chronic Kidney Disease Staging per NKF: Stage I & II GFR >=60 Normal to Mildly Decreased Stage III GFR 30-59 Moderately Decreased Stage IV GFR 15-29 Severely Decreased Stage V GFR <15 Very Little GFR Left ESRD GFR <15 on BRICKMASON CONTRACTOR Lab Order: CIP; SPEC'M 09/17/16 18:42 Test: CPK CREATINE PHOSPHOKINASE; Value: 56; Range: 26-192; Units: U/L; Status: F Test: CK-MB VALUE MASS; Value: 1.0; Range: 0.0-3.6; Units: NG/ML; Status: F Test: MB/CK RELATIVE INDEX; Value: 1.78; Range: < OR =4; Status: F Test Note: ; DIAGNOSIS CRITERIA MMB ng/ml Relative Index (RI) NON-AMI < or = 5 N/A [place] > 5 < or = 4 AMI > 5 > 4 Lab Order: Troponin; [facility] 09/17/16 18:42 Test: TROPONIN I; Value: < 0.02; Range: < 0.10; Units: NG/ML; Status: F Test Note: ; Troponin I Reference Interval for Siemens Kerrick LOCI: 99th Percentile= 0.00-0.045 ng/ml Risk Stratification: <= 0.10 ng/ml Decreased Risk for Adverse Clinical Events. 0.10-1.50 ng/ml Increased Risk for Adverse Clinical Events. Evaluation of additional criterion and/or repeat testing in 2-6 hours is suggested to rule out myocardial damage. >= 1.50 ng/ml Indicative of Myocardial Injury. Lab Order: D-Dimer Quant; [facility] 09/17/16 18:43 Test: D-DIMER QUANT; Value: < 270.0; Range: <500; Units: ng/ml; Status: F Lab Order: TSH with Free T4; [facility] 09/17/16 18:42 Test: THYROID STIMULATING HORMONE; Value: 1.500; Range: 0.358-3.740; Units: uIU/ML; Status: F Test: FREE T4; Value: 1.18; Range: 0.76-1.46; Units: NG/DL; Status: F Lab Order: Liver Profile; [facility] 09/17/16 18:42 Test: AST/SGOT; Value: 7; Range: 15-37; Abnormal: Below low normal; Units: U/L; Status: F Test: ALT/SGPT; Value: 15; Range: 12-78; Units: U/L; Status: F Test: ALKALINE PHOSPHATASE; Value: 55; Range: 45-117; Units: U/L; Status: F Test: BILIRUBIN,TOTAL; Value: 0.3; Range: 0.2-1.0; Units: MG/DL; Status: F Test: BILIRUBIN,DIRECT; Value: < 0.1; Range: 0.0-0.2; Units: MG/DL; Status: F Test: TOTAL PROTEIN; Value: 7.4; Range: 6.4-8.2; Units: GM/DL; Status: F Test: ALBUMIN; Value: 4.2; Range: 3.2-5.2; Units: GM/DL; Status: F Test: ALBUMIN/GLOBULIN RATIO; Value: 1.31; Range: 1.00-1.93; Status: F Lab Order: Lipase; SPEC'M 09/17/16 18:42 Test: LIPASE; Value: 136; Range: 73-393; Units: U/L; Status: F Lab Order: Amylase; SPEC'M 09/17/16 18:42 Test: AMYLASE; Value: 42; Range: 25-115; Units: U/L; Status: F Lab Order: MAGNESIUM LEVEL; SPEC'M 09/17/16 18:42 Test: MAGNESIUM LEVEL; Value: 2.0; Range: 1.8-2.4; Units: MG/DL; Status: F Lab Order: HCG, QUALITATIVE; SPEC'M 09/17/16 18:42 Test: HCG, SERUM QUALITATIVE; Value: NEGATIVE; Range: NEGATIVE; Status: F Radiology Order: EKG-ADULT Test: EKG-ADULT REASON FOR EXAMINATION: Chest Pain; Stationary ECG Study; 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 The lungs are well; inflated and clear. Pleural angles are sharp. Heart size is normal. Pulmonary; vasculature is not increased. No bony abnormality is seen.; ; Impression:; ; Negative portable chest x-ray.; ; ; Signed by; Chilo Phillips MD 09/18/2016 07:37 A; Outcome: 20:10 Discharge ordered by Provider. mm11 20:23 Discharge Assessment: patient administered narcotics - no. The following High Risk mb9 Discharge criteria are identified: None. Discharged to home ambulatory, with significant other. Condition: good Condition: stable Condition: improved. Discharge instructions given to patient, Instructed on discharge instructions, follow up and referral plans. medication usage, Demonstrated understanding of instructions, medications, Pt was receptive of discharge instructions/ teaching. No special radiology studies were completed. Property :Personal belongings accompany Pt. 20:24 Patient left the ED. mb9 Signatures: Dispatcher [employer] EDCA Mauro Chung MD MD ml Scott, Debra, RN RN dls Mary Coleman, Reg Reg gb Chapincito Carvajal, ELECTRON MICROPROBE OPERATOR ELECTRON MICROPROBE OPERATOR kb5 Kee Carrillo, DO mm11 Su Paredes RN RN jc4 Debby Landis, ELECTRON MICROPROBE OPERATOR ELECTRON MICROPROBE OPERATOR ct3 Helen Wilson, ELECTRON MICROPROBE OPERATOR ELECTRON MICROPROBE OPERATOR elp Shaheen Mejia RN RN mb9 Samantha Wiseman, Reg Reg ks16 Divine Hernández Chart Complete YU
== END 2016-09-17 20:24 | disposition home or self-care (01) ==
LOC: M ED 17:43
DX: R00.2 Palpitations (principal); I48.0 Paroxysmal atrial fibrillation; I47.1 Supraventricular tachycardia; J45.909 Unspecified asthma, uncomplicated; G43.909 Migraine, unspecified, not intractable, without status migrainosus; I95.9 Hypotension, unspecified; Z79.899 Other long term (current) drug therapy; Z79.82 Long term (current) use of aspirin; Z88.8 Allergy status to other drugs, medicaments and biological substances; Z87.891 Personal history of nicotine dependence

== ENCOUNTER 2016-09-27 14:20 | Emergency (ER) | payer OTHER ==
--- NOTE | 2016-09-27 16:41 | REP ---
Chest two views HISTORY: Chest pain Comparison: 09/17/2016 The lungs are clear. The heart is normal in size. The pulmonary vasculature is normal in appearance. The bony structure is intact. IMPRESSION: No acute disease. Signed by Leonidas Lowe MD 09/27/2016 04:33 P
[2016-09-27 16:45] LABS: ANION GAP 10 MEQ/L (8-16); BLOOD UREA NITROGEN 7 MG/DL (7-18); CARBON DIOXIDE LEVEL 27 MEQ/L (21-32); CHLORIDE LEVEL 108 MEQ/L (98-107); CREATININE FOR GFR 0.62 MG/DL (0.55-1.02); GLOMERULAR FILTRATION RATE > 60.0 (>60); GLUCOSE, FASTING 87 MG/DL (70-105); POTASSIUM SERUM 3.9 MEQ/L (3.5-5.1); SODIUM LEVEL 145 MEQ/L (136-145); T UPTAKE 30 % (30-39); THYROXINE (T4) 8.6 UG/DL (4.5-12.0)
[2016-09-27 16:51] LABS: INR 0.98
[2016-09-27 17:13] LABS: BASO % 0.4 % (0.0-1.0); EOS % 0.6 % (0.0-3.0); LARGE UNSTAINED CELL # 0.1 K/mm3 (0.0-0.4); LARGE UNSTAINED CELL % 2.6 % (0.0-4.0); LYMPH # 1.7 K/mm3 (1.5-6.5); LYMPH % 33.1 % (24.0-44.0); MEAN CORPUSCULAR HEMOGLOBIN 30.4 pg (27.0-33.0); MEAN CORPUSCULAR HGB CONC 34.2 g/dl (32.0-36.5); MEAN CORPUSCULAR VOLUME 89.1 fl (80.0-96.0); MONO # 0.2 K/mm3 (0.0-0.8); MONO % 4.2 % (0.0-5.0); NEUTROPHILS # 3.1 K/mm3 (1.8-7.7); PLATELET COUNT, AUTOMATED 235 k/mm3 (150-450); RED CELL DISTRIBUTION WIDTH 11.6 % (11.5-14.5); WHITE BLOOD COUNT 5.2 K/mm3 (4.0-10.0)
--- NOTE | 2016-09-27 17:57 | EDDOCDS ---
Physician Documentation [facility] Name: Cinthia Powers Age: 26 yrs Sex: Female : 1990 Arrival Date: 09/27/2016 Time: 14:20 Bed 13 Private MD: Alisha [facility] Disposition: 09/27/16 17:26 Discharged to Home/Self Care. Impression: Palpitations. - Condition is Stable. - Discharge Instructions: Atrial Fibrillation, Palpitations. - Medication Reconciliation, Local Pharmacy Hours form. - Follow up: Alf Erickson MD; When: Call to arrange an appointment; Reason: Recheck today's complaints, Continuance of care. - Problem is an acute exacerbation. - Symptoms have improved. Historical: - Allergies: Sudafedsyncope; - Home Meds: 1. aspirin 81 mg Oral chew 1 tab once daily (Last dose: 09/27/2016 08:00) 2. diltiazem HCl 120 mg Oral cpER 1 cap once daily (Last dose: 09/27/2016 08:00) - PMHx: Asthma; hypotension; junctional rhythm; Migraines; Paroxysmal Afib; svt; - PSHx: Cardiac ablation; - Social history: Smoking status: Patient states was never smoker of tobacco. No barriers to communication noted, The patient speaks fluent Swiss. - Family history: Not pertinent. - : The pt / caregiver states he / she is not on anticoagulants. Home medication list is obtained from the patient. - Exposure Risk Screening:: None identified. BUYER LIAISON: 09/27 14:29 LMP 09/27/2016 [facility] Vital Signs: 14:22 BP 136 / 86; Pulse 111; Resp 20; Temp 97.9(O); Pulse Ox 100% ; Weight 62.14 kg / 137 cmb lbs; Height 5 ft. 3 in. (160.02 cm); Pain 6/10; 15:58 BP 109 / 63 (auto/); jc4 16:01 Pulse 96 MON; Pulse Ox 100% ; jc4 17:54 BP 109 / 63; Pulse 77; Resp 20; Temp 98.5(O); Pulse Ox 100% on R/A; Pain 0/10; jc4 14:22 Body Mass Index 24.27 (62.14 kg, 160.02 cm) cmb MDM: 14:34 ECG WITH READING ER PHYS+CARDIAG ordered. EDMS 15:20 [facility] Payment Agreement was scanned into [employer] and attached to record. mm15 15:48 Rattle Leak And Squeak Repairer/Pulse Ox/q 30 min VS ordered. ke 15:48 IV Saline Lock ordered. ke 15:48 Rhythm Strip to chart ordered. ke 15:48 Undress patient appropriately for examination ordered. ke 15:48 NS 0.9% 1000 ml IV at bolus once ordered. ke 15:49 Chest, 2 View (pa\E\lat) Ordered. EDMS 15:49 Basic Metabolic Profile Ordered. EDMS 15:49 CBC with Diff Ordered. EDMS 15:49 Cardiac Injury Profile Ordered. EDMS 15:49 Prothrombin Time Profile\E\INR Ordered. EDMS 15:49 Troponin Ordered. EDMS 15:49 Thyroid Profile Ordered. EDMS 17:08 Basic Metabolic Profile Reviewed. ke 17:08 Cardiac Injury Profile Reviewed. ke 17:08 Prothrombin Time Profile\E\INR Reviewed. ke 17:08 Troponin Reviewed. ke 17:08 Thyroid Profile Reviewed. ke 17:23 CBC with Diff Reviewed. ke 17:44 Financial registration complete. gjb Administered Medications: 16:15 Drug: NS 0.9% 1000 ml [sodium chloride 0.9 % intravenous solution] Route: IV; Rate: ja5 bolus; Site: left antecubital; 17:54 Follow up: BP 109 / 63; Pulse 77 bpm; Resp 20 bpm; Temp 98.5 Oral; Pulse Ox 100% RA; jc4 Pain 0/10 Adult; IV Status: Completed infusion; IV Intake: 1000ml Signatures: Dispatcher [facility] Yony Bishop RN Ethan Chavez FNP FNP ke Castle, Jennifer, RN RN jc4 Rojelio Eli mm15 Lindsey Saxena Jessica RN ja5 The chart was reviewed and I authenticate all verbal orders and agree with the evaluation and treatment provided.Attachments: 15:20 [facility] Payment Agreement mm15 MTDD
--- NOTE | 2016-09-27 17:58 | EDDOCDS ---
Nurse's Notes [facility] Name: Cinthia Powers Age: 26 yrs Sex: Female : 1990 Arrival Date: 09/27/2016 Time: 14:20 Bed 13 Private MD: Alisha [facility] [place] Diagnosis: Palpitations Presentation: 09/27 14:26 Presenting complaint: Patient states: Heart palpitations, dry mouth since 130pm today. [facility] Adult Sepsis Screening: The patient does not have new or worsening altered mentation. Patient's respiratory rate is less than 22. Systolic blood pressure is greater than 100. Patient has a qSOFA score of 0- Negative Sepsis Screen. Suicide/Homicide risk assessment- the patient denies having any suicidal and/or homicidal ideations and does not present with any other emotional, behavioral or mental health complaints. Status: Patient is not a member services representative or dependent. Transition of care: patient was not received from another setting of care. 14:26 Acuity: LIZZETTE Level 4 [facility] 14:26 Method Of Arrival: Walkin/Carried/Asstd [facility] Triage Assessment: 14:29 General: Appears in no apparent distress. Pain: Pain currently is 5 out of 10 on a pain dwg scale. HIV screening NA for this visit Offered previously. 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 aspirin 81 mg Oral chew 1 tab once daily (Last dose: 09/27/2016 08:00) 2. diltiazem HCl 120 mg Oral cpER 1 cap once daily (Last dose: 09/27/2016 08:00) - PMHx: Asthma; hypotension; junctional rhythm; Migraines; Paroxysmal Afib; svt; - PSHx: Cardiac ablation; - Social history: Smoking status: Patient states was never smoker of tobacco. No barriers to communication noted, The patient speaks fluent Persian. - Family history: Not pertinent. - : The pt / caregiver states he / she is not on anticoagulants. Home medication list is obtained from the patient. - Exposure Risk Screening:: None identified. Screenin:15 Screening information is obtained from the patient. Fall risk: No risks identified. jc4 Assistance ADL's: requires no assistance with activities of daily living. Abuse/DV Screen: The patient / caregiver reports he/she is: not in a situation that causes fear, pain or injury. Nutritional screening: No deficits noted. Advance Directives: Currently, there is no health care proxy. There is no active DNR order. There is no living will. There is no Power of Bread Distributor. home support is adequate. Assessment: 16:08 General: Appears in no apparent distress, Behavior is appropriate for age, cooperative. ja5 Pain: Location: forehead Pain currently is 6 out of 10 on a pain scale. Quality of pain is described as aching, Pain began 2 hours ago. Neurological: Level of Consciousness is awake, alert, Oriented to person, place, time. Cardiovascular: Capillary refill < 3 seconds Heart tones S1 S2 present Rhythm is sinus rhythm No ectopy. Chest pain is denied. Respiratory: Airway is patent Respiratory effort is even, unlabored, Respiratory pattern is regular, Breath sounds are clear bilaterally. Derm: Skin is intact, is fragile, Skin is dry, Skin is pink, warm & dry. normal, Skin temperature is warm. 16:57 General: patient headache pain has decreased to 3/10. patient denies dizziness and has ja5 ambulated to bathroom, tolerated well.. 17:54 General: Appears in no apparent distress, Behavior is cooperative, pleasant. Pain: jc4 Denies pain. Neurological: Level of Consciousness is awake, alert, Oriented to person, place, time. Respiratory: Airway is patent Respiratory effort is even, unlabored, Respiratory pattern is regular, symmetrical. Derm: Skin is pink, warm & dry. Vital Signs: 14:22 BP 136 / 86; Pulse 111; Resp 20; Temp 97.9(O); Pulse Ox 100% ; Weight 62.14 kg; Height cmb 5 ft. 3 in. (160.02 cm); Pain 6/10; 15:58 BP 109 / 63 (auto/); jc4 16:01 Pulse 96 MON; Pulse Ox 100% ; jc4 17:54 BP 109 / 63; Pulse 77; Resp 20; Temp 98.5(O); Pulse Ox 100% on R/A; Pain 0/10; jc4 14:22 Body Mass Index 24.27 (62.14 kg, 160.02 cm) cmb Vitals: 14:22 Log In Time: September 27, 2016 at 14:20. cmb ED Course: 14:22 Patient visited by Yelena Bello. cmb 14:22 Alisha [facility] is Private Physician. cmb 14:22 Patient moved to Waiting cmb 14:24 Patient moved to Pre RCE cmb 14:27 Triage Initiated dwg 14:30 Patient moved to PD2 / 27 dwg 14:42 Patient visited by Jonathan Gamboa PCA. mdr 14:42 EKG done. (by ED staff). Reviewed by Mariano Mahan MD. mdr 15:04 Su Paredes, NADER is Primary Nurse. mb9 15:04 Patient moved to 13 mb9 15:20 [facility] Payment Agreement was scanned into CRAVE and attached to record. mm15 15:32 [facility] ke 15:32 Patient visited by Ethan Taylor FNP. ke 15:32 Patient visited by Ethan Taylor FNP. ke 16:08 Patient visited by Ethan Taylor FNP. ke 16:15 The patient / caregiver is instructed regarding the plan of care and ED course. jc4 16:16 Inserted peripheral IV: 20gauge IV in left antecubital area. ja5 16:33 Patient visited by Ethan Taylor FNP. ke 17:05 Patient visited by Genet Silva,NADER. ja5 17:26 Alf Erickson MD is Referral Physician. ke 17:27 Chest, 2 View (pa\E\lat) Returned. EDMS 17:55 Discontinued lock intact, bleeding controlled, pressure dressing applied, No jc4 redness/swelling at site. No procedures done that require assistance. Administered Medications: 16:15 Drug: NS 0.9% 1000 ml [sodium chloride 0.9 % intravenous solution] Route: IV; Rate: ja5 bolus; Site: left antecubital; 17:54 Follow up: BP 109 / 63; Pulse 77 bpm; Resp 20 bpm; Temp 98.5 Oral; Pulse Ox 100% RA; jc4 Pain 0/10 Adult; IV Status: Completed infusion; IV Intake: 1000ml Intake: 17:54 IV: 1000.00ml; Total: 1000.00ml. jc4 Order Results: Lab Order: Basic Metabolic Profile; SPEC'M 09/27/16 16:04 Test: GLUCOSE, FASTING; Value: 87; Range: 70-105; Units: MG/DL; Status: F Test: BLOOD UREA NITROGEN; Value: 7; Range: 7-18; Units: MG/DL; Status: F Test: CREATININE FOR GFR; Value: 0.62; Range: 0.55-1.02; Units: MG/DL; Status: F Test: GLOMERULAR FILTRATION RATE; Value: > 60.0; Range: >60; Status: F Test: SODIUM LEVEL; Value: 145; Range: 136-145; Units: MEQ/L; Status: F Test: POTASSIUM SERUM; Value: 3.9; Range: 3.5-5.1; Units: MEQ/L; Status: F Test: CHLORIDE LEVEL; Value: 108; Range: 98-107; Abnormal: Above high normal; Units: MEQ/L; Status: F Test: CARBON DIOXIDE LEVEL; Value: 27; Range: 21-32; Units: MEQ/L; Status: F Test: ANION GAP; Value: 10; Range: 8-16; Units: MEQ/L; Status: F Test: CALCIUM LEVEL; Value: 9.0; Range: 8.5-10.1; Units: MG/DL; Status: F Test Note: ; Units are mL/min/1.73 m2 Chronic Kidney Disease Staging per NKF: Stage I & II GFR >=60 Normal to Mildly Decreased Stage III GFR 30-59 Moderately Decreased Stage IV GFR 15-29 Severely Decreased Stage V GFR <15 Very Little GFR Left ESRD GFR <15 on MATERIAL DISPOSITION INSPECTOR Lab Order: CBC with Diff; SPEC'M 09/27/16 16:04 Test: WHITE BLOOD COUNT; Value: 5.2; Range: 4.0-10.0; Units: K/mm3; Status: F Test: RED BLOOD COUNT; Value: 4.16; Range: 4.00-5.40; Units: M/mm3; Status: F Test: HEMOGLOBIN; Value: 12.7; Range: 12.0-16.0; Units: g/dl; Status: F Test: HEMATOCRIT; Value: 37.0; Range: 36.0-47.0; Units: %; Status: F Test: MEAN CORPUSCULAR VOLUME; Value: 89.1; Range: 80.0-96.0; Units: fl; Status: F Test: MEAN CORPUSCULAR HEMOGLOBIN; Value: 30.4; Range: 27.0-33.0; Units: pg; Status: F Test: MEAN CORPUSCULAR HGB CONC; Value: 34.2; Range: 32.0-36.5; Units: g/dl; Status: F Test: RED CELL DISTRIBUTION WIDTH; Value: 11.6; Range: 11.5-14.5; Units: %; Status: F Test: PLATELET COUNT, AUTOMATED; Value: 235; Range: 150-450; Units: k/mm3; Status: F Test: NEUTROPHILS %; Value: 59.0; Range: 36.0-66.0; Units: %; Status: F Test: LYMPH %; Value: 33.1; Range: 24.0-44.0; Units: %; Status: F Test: MONO %; Value: 4.2; Range: 0.0-5.0; Units: %; Status: F Test: EOS %; Value: 0.6; Range: 0.0-3.0; Units: %; Status: F Test: BASO %; Value: 0.4; Range: 0.0-1.0; Units: %; Status: F Test: LARGE UNSTAINED CELL %; Value: 2.6; Range: 0.0-4.0; Units: %; Status: F Test: NEUTROPHILS #; Value: 3.1; Range: 1.8-7.7; Units: K/mm3; Status: F Test: LYMPH #; Value: 1.7; Range: 1.5-6.5; Units: K/mm3; Status: F Test: MONO #; Value: 0.2; Range: 0.0-0.8; Units: K/mm3; Status: F Test: EOS #; Value: 0.0; Range: 0.0-0.50; Units: K/mm3; Status: F Test: BASO #; Value: 0.0; Range: 0.0-0.2; Units: K/mm3; Status: F Test: LARGE UNSTAINED CELL #; Value: 0.1; Range: 0.0-0.4; Units: K/mm3; Status: F Lab Order: Cardiac Injury Profile; SPEC'M 09/27/16 16:04 Test: CPK CREATINE PHOSPHOKINASE; Value: 40; Range: 26-192; Units: U/L; Status: F Test: CK-MB VALUE MASS; Value: 1.0; Range: 0.0-3.6; Units: NG/ML; Status: F Test: MB/CK RELATIVE INDEX; Value: 2.50; Range: < OR =4; Status: F Test Note: ; DIAGNOSIS CRITERIA MMB ng/ml Relative Index (RI) NON-AMI < or = 5 N/A [place] > 5 < or = 4 AMI > 5 > 4 Lab Order: Prothrombin Time Profile\E\INR; [facility]' 09/27/16 16:04 Test: PROTHROMBIN TIME; Value: 13.1; Range: 12.3-14.5; Units: SECONDS; Status: F Test: INR; Value: 0.98; Status: F Test Note: ; THERAPUTIC HUMAN INR VALUES INDICATIONS NORMAL RANGES PROPHYLAXIS/TREATMENT OF: VENOUS THROMBOSIS 2.0-3.0 PULMONARY EMBOLISM 2.0-3.0 PREVENTION OF SYSTEMIC EMBOLISM FROM: TISSUE HEART VALVES 2.0-3.0 ACUTE MYOCARDIAL INFARCTION 2.0-3.0 VALVULAR HEART DISEASE 2.0-3.0 ATRIAL FIBRILLATION 2.0-3.0 MECHANICAL VALVES(HIGH RISK) 2.5-3.5 RECURRENT MYOCARDIAL INFARCTION 2.5-3.5 Lab Order: Troponin; [facility] 09/27/16 16:04 Test: TROPONIN I; Value: < 0.02; Range: < 0.10; Units: NG/ML; Status: F Test Note: ; Troponin I Reference Interval for Mobilitie LOCI: 99th Percentile= 0.00-0.045 ng/ml Risk Stratification: <= 0.10 ng/ml Decreased Risk for Adverse Clinical Events. 0.10-1.50 ng/ml Increased Risk for Adverse Clinical Events. Evaluation of additional criterion and/or repeat testing in 2-6 hours is suggested to rule out myocardial damage. >= 1.50 ng/ml Indicative of Myocardial Injury. Lab Order: Thyroid Profile; SPEC'09/27/16 16:04 Test: T UPTAKE; Value: 30; Range: 30-39; Units: %; Status: F Test: THYROXINE (T4); Value: 8.6; Range: 4.5-12.0; Units: UG/DL; Status: F Test: FREE THYROXINE INDEX; Value: 2.6; Range: 1.3-4.8; Units: %; Status: F Test: THYROID STIMULATING HORMONE; Value: 1.640; Range: 0.358-3.740; Units: uIU/ML; Status: F Radiology Order: Chest, 2 View (pa\E\lat) Test: Chest, 2 View (pa\E\lat) REASON FOR EXAMINATION: Chest Pain; Chest two views; ; HISTORY: Chest pain; ; Comparison: 09/17/2016; ; The lungs are clear. The heart is normal in size. The pulmonary vasculature is; normal in appearance. The bony structure is intact.; ; IMPRESSION: No acute disease.; ; ; Signed by; Leonidas Lowe MD 09/27/2016 04:33 P; Outcome: 17:26 Discharge ordered by Provider. alphonso 17:55 Discharge Assessment: Patient awake, alert and oriented x 3. No cognitive and/or jc4 functional deficits noted. Patient verbalized understanding of disposition instructions. patient administered narcotics - no. The following High Risk Discharge criteria are identified: None. Discharged to home ambulatory, with significant other. Condition: stable. Discharge instructions given to patient, Instructed on discharge instructions, follow up and referral plans. Demonstrated understanding of instructions, Pt was receptive of discharge instructions/ teaching. No special radiology studies were completed. Property :Personal belongings accompany Pt. 17:56 Patient left the ED. jc4 Signatures: Dispatcher [employer] EDMS Yony iBshop, Ethan Chavez RN, DIRECTOR OF MARKETING AND PROMOTIONS DIRECTOR OF MARKETING AND PROMOTIONS Su Lomeli RN RN jc4 Yelena Bello cmb Rojelio Eli mm15 Shaheen Mejia,RN RN mb9 Jonathan Gamboa, CAROLINE CONSUMER AFFAIRS SPECIALIST Genet Davidson,RN RN ja5 Corrections: (The following items were deleted from the chart) 14:23 14:22 BP 136 / 86; Pulse 111bpm; Resp 20bpm; Pulse Ox 100%; 62.14 kg; Height 5 ft. 3 cmb in.; BMI: 24.2; Pain 6/10; cmb MTDD
--- NOTE | 2016-09-28 08:00 | ECGEPIP ---
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
--- NOTE | 2016-09-29 18:57 | EDDOCDS ---
Physician Documentation [facility] Name: Cinthia Powers Age: 26 yrs Sex: Female : 1990 Arrival Date: 09/27/2016 Time: 14:20 Bed 13 Private MD: Alisha [facility] [place] Disposition: 09/27/16 17:26 Discharged to Home/Self Care. Impression: Palpitations. - Condition is Stable. - Discharge Instructions: Atrial Fibrillation, Palpitations. - Medication Reconciliation, Local Pharmacy Hours form. - Follow up: Alf Erickson MD; When: Call to arrange an appointment; Reason: Recheck today's complaints, Continuance of care. - Problem is an acute exacerbation. - Symptoms have improved. Historical: - Allergies: Sudafedsyncope; - Home Meds: 1. aspirin 81 mg Oral chew 1 tab once daily (Last dose: 09/27/2016 08:00) 2. diltiazem HCl 120 mg Oral cpER 1 cap once daily (Last dose: 09/27/2016 08:00) - PMHx: Asthma; hypotension; junctional rhythm; Migraines; Paroxysmal Afib; svt; - PSHx: Cardiac ablation; - Social history: Smoking status: Patient states was never smoker of tobacco. No barriers to communication noted, The patient speaks fluent Vietnamese. - Family history: Not pertinent. - : The pt / caregiver states he / she is not on anticoagulants. Home medication list is obtained from the patient. - Exposure Risk Screening:: None identified. 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 3 in. (160.02 cm); Pain 6/10; 15:58 BP 109 / 63 (auto/); jc4 16:01 Pulse 96 MON; Pulse Ox 100% ; jc4 17:54 BP 109 / 63; Pulse 77; Resp 20; Temp 98.5(O); Pulse Ox 100% on R/A; Pain 0/10; jc4 14:22 Body Mass Index 24.27 (62.14 kg, 160.02 cm) cmb MDM: 14:34 ECG WITH READING ER PHYS+CARDIAG ordered. EDMS 15:20 [facility] Payment Agreement was scanned into [employer] and attached to record. mm15 15:48 Truck Loader And Unloader/Pulse Ox/q 30 min VS ordered. ke 15:48 IV Saline Lock ordered. ke 15:48 Rhythm Strip to chart ordered. ke 15:48 Undress patient appropriately for examination ordered. ke 15:48 NS 0.9% 1000 ml IV at bolus once ordered. ke 15:49 Chest, 2 View (pa\E\lat) Ordered. EDMS 15:49 Basic Metabolic Profile Ordered. EDMS 15:49 CBC with Diff Ordered. EDMS 15:49 Cardiac Injury Profile Ordered. EDMS 15:49 Prothrombin Time Profile\E\INR Ordered. EDMS 15:49 Troponin Ordered. EDMS 15:49 Thyroid Profile Ordered. EDMS 17:08 Basic Metabolic Profile Reviewed. ke 17:08 Cardiac Injury Profile Reviewed. ke 17:08 Prothrombin Time Profile\E\INR Reviewed. ke 17:08 Troponin Reviewed. ke 17:08 Thyroid Profile Reviewed. ke 17:23 CBC with Diff Reviewed. ke 17:44 Financial registration complete. [facility] 09/28 11:28 T-Sheet-- Draft Copy was scanned into [employer] and attached to record. gb 11:29 ECG/EKG was scanned into [employer] and attached to record. gb 11:29 Trend VS was scanned into [employer] and attached to record. gb Administered Medications: 09/27 16:15 Drug: NS 0.9% 1000 ml [sodium chloride 0.9 % intravenous solution] Route: IV; Rate: ja5 bolus; Site: left antecubital; 17:54 Follow up: BP 109 / 63; Pulse 77 bpm; Resp 20 bpm; Temp 98.5 Oral; Pulse Ox 100% RA; jc4 Pain 0/10 Adult; IV Status: Completed infusion; IV Intake: 1000ml Signatures: Dispatcher [employer]Host EDMS Yony Bishop, RN RN Mary Rosas, Edison Reg Ethan Elias, TRANSPORTATION ATTENDANT TRANSPORTATION ATTENDANT Su Lomeli RN RN jc4 Rojelio Eli mm15 Lindsey Saxena b Genet Silva RN ja5 The chart was reviewed and I authenticate all verbal orders and agree with the evaluation and treatment provided.Attachments: 15:20 [facility] Payment Agreement mm15 09/28 11:28 T-Sheet-- Draft Copy gb 11:29 ECG/EKG gb Chart Complete MTDD
--- NOTE | 2016-09-29 18:57 | EDDOCDS ---
Physician Documentation [facility] Name: Cinthia Powers Age: 26 yrs Sex: Female : 1990 Arrival Date: 09/27/2016 Time: 14:20 Bed 13 Private MD: [place] [facility]position: 09/27/16 17:26 Discharged to Home/Self Care. Impression: Palpitations. - Condition is Stable. - Discharge Instructions: Atrial Fibrillation, Palpitations. - Medication Reconciliation, Local Pharmacy Hours form. - Follow up: Alf Erickson MD; When: Call to arrange an appointment; Reason: Recheck today's complaints, Continuance of care. - Problem is an acute exacerbation. - Symptoms have improved. Historical: - Allergies: Sudafedsyncope; - Home Meds: 1. aspirin 81 mg Oral chew 1 tab once daily (Last dose: 09/27/2016 08:00) 2. diltiazem HCl 120 mg Oral cpER 1 cap once daily (Last dose: 09/27/2016 08:00) - PMHx: Asthma; hypotension; junctional rhythm; Migraines; Paroxysmal Afib; svt; - PSHx: Cardiac ablation; - Social history: Smoking status: Patient states was never smoker of tobacco. No barriers to communication noted, The patient speaks fluent Urdu. - Family history: Not pertinent. - : The pt / caregiver states he / she is not on anticoagulants. Home medication list is obtained from the patient. - Exposure Risk Screening:: None identified. 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 3 in. (160.02 cm); Pain 6/10; 15:58 BP 109 / 63 (auto/); jc4 16:01 Pulse 96 MON; Pulse Ox 100% ; jc4 17:54 BP 109 / 63; Pulse 77; Resp 20; Temp 98.5(O); Pulse Ox 100% on R/A; Pain 0/10; jc4 14:22 Body Mass Index 24.27 (62.14 kg, 160.02 cm) cmb MDM: 14:34 ECG WITH READING ER PHYS+CARDIAG ordered. EDMS 15:20 [facility] [place] Payment Agreement was scanned into ePatientFinder and attached to record. mm15 15:48 Motor Operator/Pulse Ox/q 30 min VS ordered. ke 15:48 IV Saline Lock ordered. ke 15:48 Rhythm Strip to chart ordered. ke 15:48 Undress patient appropriately for examination ordered. ke 15:48 NS 0.9% 1000 ml IV at bolus once ordered. ke 15:49 Chest, 2 View (pa\E\lat) Ordered. EDMS 15:49 Basic Metabolic Profile Ordered. EDMS 15:49 CBC with Diff Ordered. EDMS 15:49 Cardiac Injury Profile Ordered. EDMS 15:49 Prothrombin Time Profile\E\INR Ordered. EDMS 15:49 Troponin Ordered. EDMS 15:49 Thyroid Profile Ordered. EDMS 17:08 Basic Metabolic Profile Reviewed. ke 17:08 Cardiac Injury Profile Reviewed. ke 17:08 Prothrombin Time Profile\E\INR Reviewed. ke 17:08 Troponin Reviewed. ke 17:08 Thyroid Profile Reviewed. ke 17:23 CBC with Diff Reviewed. ke 17:44 Financial registration complete. [facility] 09/28 11:28 T-Sheet-- Draft Copy was scanned into ePatientFinder and attached to record. gb 11:29 ECG/EKG was scanned into ePatientFinder and attached to record. gb 11:29 Trend VS was scanned into ePatientFinder and attached to record. gb Administered Medications: 09/27 16:15 Drug: NS 0.9% 1000 ml [sodium chloride 0.9 % intravenous solution] Route: IV; Rate: ja5 bolus; Site: left antecubital; 17:54 Follow up: BP 109 / 63; Pulse 77 bpm; Resp 20 bpm; Temp 98.5 Oral; Pulse Ox 100% RA; jc4 Pain 0/10 Adult; IV Status: Completed infusion; IV Intake: 1000ml Signatures: Dispatcher [employer] EDMS Yony Bishop, RN RN Mary Rosas, Edison Reg Ethan Elias, HOME ECONOMICS EXPERT HOME ECONOMICS EXPERT Su Lomeli RN RN jc4 Rojelio Eli mm15 Lindsey Saxena b Genet Silva RN ja5 The chart was reviewed and I authenticate all verbal orders and agree with the evaluation and treatment provided.Attachments: 15:20 [facility] Payment Agreement mm15 09/28 11:28 T-Sheet-- Draft Copy gb 11:29 ECG/EKG gb Chart Complete MTDD
--- NOTE | 2016-09-29 18:58 | EDDOCDS ---
Nurse's Notes [facility] Name: Cinthia Michaels Age: 26 yrs Sex: Female : 1990 Arrival Date: 09/27/2016 Time: 14:20 Bed 13 Private MD: [place] [facility]: Palpitations Presentation: 09/27 14:26 Presenting complaint: Patient states: Heart palpitations, dry mouth since 130pm today. [facility] Adult Sepsis Screening: The patient does not have new or worsening altered mentation. Patient's respiratory rate is less than 22. Systolic blood pressure is greater than 100. Patient has a qSOFA score of 0- Negative Sepsis Screen. Suicide/Homicide risk assessment- the patient denies having any suicidal and/or homicidal ideations and does not present with any other emotional, behavioral or mental health complaints. Status: Patient is not a information services consultant or dependent. Transition of care: patient was not received from another setting of care. 14:26 Acuity: LIZZETTE Level 4 [facility] 14:26 Method Of Arrival: Walkin/Carried/Asstd [facility] Triage Assessment: 14:29 General: Appears in no apparent distress. Pain: Pain currently is 5 out of 10 on a pain dwg scale. HIV screening NA for this visit Offered previously. [employer]: 14:29 LMP 09/27/2016 [facility] Historical: - Allergies: Sudafedsyncope; - Home Meds: 1. aspirin 81 mg Oral chew 1 tab once daily (Last dose: 09/27/2016 08:00) 2. diltiazem HCl 120 mg Oral cpER 1 cap once daily (Last dose: 09/27/2016 08:00) - PMHx: Asthma; hypotension; junctional rhythm; Migraines; Paroxysmal Afib; svt; - PSHx: Cardiac ablation; - Social history: Smoking status: Patient states was never smoker of tobacco. No barriers to communication noted, The patient speaks fluent [place]. - Family history: Not pertinent. - : The pt / caregiver states he / she is not on anticoagulants. Home medication list is obtained from the patient. - Exposure Risk Screening:: None identified. Screenin:15 Screening information is obtained from the patient. Fall risk: No risks identified. jc4 Assistance ADL's: requires no assistance with activities of daily living. Abuse/DV Screen: The patient / caregiver reports he/she is: not in a situation that causes fear, pain or injury. Nutritional screening: No deficits noted. Advance Directives: Currently, there is no health care proxy. There is no active DNR order. There is no living will. There is no Power of Utility Tech. home support is adequate. Assessment: 16:08 General: Appears in no apparent distress, Behavior is appropriate for age, cooperative. ja5 Pain: Location: forehead Pain currently is 6 out of 10 on a pain scale. Quality of pain is described as aching, Pain began 2 hours ago. Neurological: Level of Consciousness is awake, alert, Oriented to person, place, time. Cardiovascular: Capillary refill < 3 seconds Heart tones S1 S2 present Rhythm is sinus rhythm No ectopy. Chest pain is denied. Respiratory: Airway is patent Respiratory effort is even, unlabored, Respiratory pattern is regular, Breath sounds are clear bilaterally. Derm: Skin is intact, is fragile, Skin is dry, Skin is pink, warm & dry. normal, Skin temperature is warm. 16:57 General: patient headache pain has decreased to 3/10. patient denies dizziness and has ja5 ambulated to bathroom, tolerated well.. 17:54 General: Appears in no apparent distress, Behavior is cooperative, pleasant. Pain: jc4 Denies pain. Neurological: Level of Consciousness is awake, alert, Oriented to person, place, time. Respiratory: Airway is patent Respiratory effort is even, unlabored, Respiratory pattern is regular, symmetrical. Derm: Skin is pink, warm & dry. Vital Signs: 14:22 BP 136 / 86; Pulse 111; Resp 20; Temp 97.9(O); Pulse Ox 100% ; Weight 62.14 kg; Height cmb 5 ft. 3 in. (160.02 cm); Pain 6/10; 15:58 BP 109 / 63 (auto/); jc4 16:01 Pulse 96 MON; Pulse Ox 100% ; jc4 17:54 BP 109 / 63; Pulse 77; Resp 20; Temp 98.5(O); Pulse Ox 100% on R/A; Pain 0/10; jc4 14:22 Body Mass Index 24.27 (62.14 kg, 160.02 cm) cmb Vitals: 14:22 Log In Time: September 27, 2016 at 14:20. cmb ED Course: 14:22 Patient visited by Yelena Bello. cmb 14:22 Alisha [facility] [place] Private Physician. cmb 14:22 Patient moved to Waiting cmb 14:24 Patient moved to Pre RCE cmb 14:27 Triage Initiated dwg 14:30 Patient moved to PD2 dwg 14:42 Patient visited by Jonathan Gamboa PCA. mdr 14:42 EKG done. (by ED staff). Reviewed by Mariano Mahan MD. mdr 15:04 Su Paredes, NADER is Primary Nurse. mb9 15:04 Patient moved to 13 mb9 15:20 [facility] Payment Agreement was scanned into [employer] and attached to record. mm15 15:32 [facility] ke 15:32 Patient visited by Ethan Taylor FNP. ke 15:32 Patient visited by Ethan Taylor FNP. ke 16:08 Patient visited by Ethan Taylor FNP. ke 16:15 The patient / caregiver is instructed regarding the plan of care and ED course. jc4 16:16 Inserted peripheral IV: 20gauge IV in left antecubital area. ja5 16:33 Patient visited by Ethan Taylor FNP. ke 17:05 Patient visited by Genet Silva,NADER. ja5 17:26 Alf Erickson MD is Referral Physician. ke 17:27 Chest, 2 View (pa\E\lat) Returned. EDMS 17:55 Discontinued lock intact, bleeding controlled, pressure dressing applied, No jc4 redness/swelling at site. No procedures done that require assistance. 09/28 08:22 EKG-ADULT Returned. EDMS 11:28 T-Sheet-- Draft Copy was scanned into [employer] and attached to record. gb 11:29 ECG/EKG was scanned into [employer] and attached to record. gb 11:29 Trend VS was scanned into [employer] and attached to record. gb Administered Medications: 09/27 16:15 Drug: NS 0.9% 1000 ml [sodium chloride 0.9 % intravenous solution] Route: IV; Rate: ja5 bolus; Site: left antecubital; 17:54 Follow up: BP 109 / 63; Pulse 77 bpm; Resp 20 bpm; Temp 98.5 Oral; Pulse Ox 100% RA; jc4 Pain 0/10 Adult; IV Status: Completed infusion; IV Intake: 1000ml Attachments: 11:29 Trend VS gb Intake: 09/27 17:54 IV: 1000.00ml; Total: 1000.00ml. jc4 Order Results: Lab Order: Basic Metabolic Profile; SPEC'M 09/27/16 16:04 Test: GLUCOSE, FASTING; Value: 87; Range: 70-105; Units: MG/DL; Status: F Test: BLOOD UREA NITROGEN; Value: 7; Range: 7-18; Units: MG/DL; Status: F Test: CREATININE FOR GFR; Value: 0.62; Range: 0.55-1.02; Units: MG/DL; Status: F Test: GLOMERULAR FILTRATION RATE; Value: > 60.0; Range: >60; Status: F Test: SODIUM LEVEL; Value: 145; Range: 136-145; Units: MEQ/L; Status: F Test: POTASSIUM SERUM; Value: 3.9; Range: 3.5-5.1; Units: MEQ/L; Status: F Test: CHLORIDE LEVEL; Value: 108; Range: 98-107; Abnormal: Above high normal; Units: MEQ/L; Status: F Test: CARBON DIOXIDE LEVEL; Value: 27; Range: 21-32; Units: MEQ/L; Status: F Test: ANION GAP; Value: 10; Range: 8-16; Units: MEQ/L; Status: F Test: CALCIUM LEVEL; Value: 9.0; Range: 8.5-10.1; Units: MG/DL; Status: F Test Note: ; Units are mL/min/1.73 m2 Chronic Kidney Disease Staging per NKF: Stage I & II GFR >=60 Normal to Mildly Decreased Stage III GFR 30-59 Moderately Decreased Stage IV GFR 15-29 Severely Decreased Stage V GFR <15 Very Little GFR Left ESRD GFR <15 on MANUAL MACHINIST Lab Order: CBC with Diff; SPEC'M 09/27/16 16:04 Test: WHITE BLOOD COUNT; Value: 5.2; Range: 4.0-10.0; Units: K/mm3; Status: F Test: RED BLOOD COUNT; Value: 4.16; Range: 4.00-5.40; Units: M/mm3; Status: F Test: HEMOGLOBIN; Value: 12.7; Range: 12.0-16.0; Units: g/dl; Status: F Test: HEMATOCRIT; Value: 37.0; Range: 36.0-47.0; Units: %; Status: F Test: MEAN CORPUSCULAR VOLUME; Value: 89.1; Range: 80.0-96.0; Units: fl; Status: F Test: MEAN CORPUSCULAR HEMOGLOBIN; Value: 30.4; Range: 27.0-33.0; Units: pg; Status: F Test: MEAN CORPUSCULAR HGB CONC; Value: 34.2; Range: 32.0-36.5; Units: g/dl; Status: F Test: RED CELL DISTRIBUTION WIDTH; Value: 11.6; Range: 11.5-14.5; Units: %; Status: F Test: PLATELET COUNT, AUTOMATED; Value: 235; Range: 150-450; Units: k/mm3; Status: F Test: NEUTROPHILS %; Value: 59.0; Range: 36.0-66.0; Units: %; Status: F Test: LYMPH %; Value: 33.1; Range: 24.0-44.0; Units: %; Status: F Test: MONO %; Value: 4.2; Range: 0.0-5.0; Units: %; Status: F Test: EOS %; Value: 0.6; Range: 0.0-3.0; Units: %; Status: F Test: BASO %; Value: 0.4; Range: 0.0-1.0; Units: %; Status: F Test: LARGE UNSTAINED CELL %; Value: 2.6; Range: 0.0-4.0; Units: %; Status: F Test: NEUTROPHILS #; Value: 3.1; Range: 1.8-7.7; Units: K/mm3; Status: F Test: LYMPH #; Value: 1.7; Range: 1.5-6.5; Units: K/mm3; Status: F Test: MONO #; Value: 0.2; Range: 0.0-0.8; Units: K/mm3; Status: F Test: EOS #; Value: 0.0; Range: 0.0-0.50; Units: K/mm3; Status: F Test: BASO #; Value: 0.0; Range: 0.0-0.2; Units: K/mm3; Status: F Test: LARGE UNSTAINED CELL #; Value: 0.1; Range: 0.0-0.4; Units: K/mm3; Status: F Lab Order: Cardiac Injury Profile; [facility]' 09/27/16 16:04 Test: CPK CREATINE PHOSPHOKINASE; Value: 40; Range: 26-192; Units: U/L; Status: F Test: CK-MB VALUE MASS; Value: 1.0; Range: 0.0-3.6; Units: NG/ML; Status: F Test: MB/CK RELATIVE INDEX; Value: 2.50; Range: < OR =4; Status: F Test Note: ; DIAGNOSIS CRITERIA MMB ng/ml Relative Index (RI) NON-AMI < or = 5 N/A BERMAN ZONE > 5 < or = 4 AMI > 5 > 4 Lab Order: Prothrombin Time Profile\E\INR; [facility] 09/27/16 16:04 Test: PROTHROMBIN TIME; Value: 13.1; Range: 12.3-14.5; Units: SECONDS; Status: F Test: INR; Value: 0.98; Status: F Test Note: ; THERAPUTIC HUMAN INR VALUES INDICATIONS NORMAL RANGES PROPHYLAXIS/TREATMENT OF: VENOUS THROMBOSIS 2.0-3.0 PULMONARY EMBOLISM 2.0-3.0 PREVENTION OF SYSTEMIC EMBOLISM FROM: TISSUE HEART VALVES 2.0-3.0 ACUTE MYOCARDIAL INFARCTION 2.0-3.0 VALVULAR HEART DISEASE 2.0-3.0 ATRIAL FIBRILLATION 2.0-3.0 MECHANICAL VALVES(HIGH RISK) 2.5-3.5 RECURRENT MYOCARDIAL INFARCTION 2.5-3.5 Lab Order: Troponin; [facility]' 09/27/16 16:04 Test: TROPONIN I; Value: < 0.02; Range: < 0.10; Units: NG/ML; Status: F Test Note: ; Troponin I Reference Interval for HEROZ LOCI: 99th Percentile= 0.00-0.045 ng/ml Risk Stratification: <= 0.10 ng/ml Decreased Risk for Adverse Clinical Events. 0.10-1.50 ng/ml Increased Risk for Adverse Clinical Events. Evaluation of additional criterion and/or repeat testing in 2-6 hours is suggested to rule out myocardial damage. >= 1.50 ng/ml Indicative of Myocardial Injury. Lab Order: Thyroid Profile; SPEC'M 09/27/16 16:04 Test: T UPTAKE; Value: 30; Range: 30-39; Units: %; Status: F Test: THYROXINE (T4); Value: 8.6; Range: 4.5-12.0; Units: UG/DL; Status: F Test: FREE THYROXINE INDEX; Value: 2.6; Range: 1.3-4.8; Units: %; Status: F Test: THYROID STIMULATING HORMONE; Value: 1.640; Range: 0.358-3.740; Units: uIU/ML; Status: F Radiology Order: EKG-ADULT Test: EKG-ADULT REASON FOR EXAMINATION: Heart palpation; Stationary ECG Study; [facility] - ED; ; Test Date: 2016-09-27; Pat Name: CINTHIA MICHAELS Department:; Room: -; Gender: F [employer] Vegetable [employer] Worker: ; : 1990 Requested By: ETHAN BOWENS; Order Number: [id number] Reading MD: Divine Patricio; Measurements; Intervals [place]; Rate: 92 P: 73; OK: 162 QRS: 81; QRSD: 86 T: 70; QT: 346; QTc: 430; Interpretive Statements; SINUS RHYTHM; INCREASED RATE 09/17/16; Electronically Signed On 09-28-2016 8:00:14 EST by Divine Patricio; Radiology Order: Chest, 2 View (pa\E\lat) Test: Chest, 2 View (pa\E\lat) REASON FOR EXAMINATION: Chest Pain; Chest two views; ; HISTORY: Chest pain; ; Comparison: 09/17/2016; ; The lungs are clear. The heart is normal in size. The pulmonary vasculature is; normal in appearance. The bony structure is intact.; ; IMPRESSION: No acute disease.; ; ; Signed by; Leonidas Lowe MD 09/27/2016 04:33 P; Outcome: 17:26 Discharge ordered by Provider. ke 17:55 Discharge Assessment: Patient awake, alert and oriented x 3. No cognitive and/or jc4 functional deficits noted. Patient verbalized understanding of disposition instructions. patient administered narcotics - no. The following High Risk Discharge criteria are identified: None. Discharged to home ambulatory, with significant other. Condition: stable. Discharge instructions given to patient, Instructed on discharge instructions, follow up and referral plans. Demonstrated understanding of instructions, Pt was receptive of discharge instructions/ teaching. No special radiology studies were completed. Property :Personal belongings accompany Pt. 17:56 Patient left the ED. jc4 Signatures: Dispatcher [employer] EDMS Yony Bishop, RN RN Mary Rosas, Reg Reg Ethan Elias, CANCELING AND CUTTING CONTROL CLERK CANCELING AND CUTTING CONTROL CLERK Su Lomeli RN RN jc4 Yelena Bello cmb Rojelio Eli mm15 Shaheen Mejia,RN RN mb9 Jonathan Gamboa PCA THROW OUT CLERK Genet Davidson,RN RN ja5 Corrections: (The following items were deleted from the chart) 14:23 14:22 BP 136 / 86; Pulse 111bpm; Resp 20bpm; Pulse Ox 100%; 62.14 kg; Height 5 ft. 3 cmb in.; BMI: 24.2; Pain 6/10; cmb Chart Complete MTDD
== END 2016-09-27 17:56 | disposition home or self-care (01) ==
LOC: M ED 14:20
DX: R00.2 Palpitations (principal); J45.909 Unspecified asthma, uncomplicated; I95.9 Hypotension, unspecified; G43.909 Migraine, unspecified, not intractable, without status migrainosus; I48.91 Unspecified atrial fibrillation; I47.1 Supraventricular tachycardia; Z79.82 Long term (current) use of aspirin; Z79.899 Other long term (current) drug therapy; Z88.8 Allergy status to other drugs, medicaments and biological substances

== ENCOUNTER 2016-10-20 20:55 | Emergency (ER) | payer OTHER ==
--- NOTE | 2016-10-20 22:27 | EDDOCDS ---
Nurse's Notes [facility] Name: Cinthia Powers Age: 26 yrs Sex: Female : 1990 Arrival Date: 10/20/2016 Time: 20:55 Bed TR3 Private MD: Cipriano Capps MD Diagnosis: Palpitations Presentation: 10/20 21:05 Adult Sepsis Screening: The patient does not have new or worsening altered mentation. jo3 Patient's respiratory rate is less than 22. Systolic blood pressure is greater than 100. Patient has a qSOFA score of 0- Negative Sepsis Screen. Suicide/Homicide risk assessment- the patient denies having any suicidal and/or homicidal ideations and does not present with any other emotional, behavioral or mental health complaints. Status: The patient is a dependent. Transition of care: patient was not received from another setting of care. 21:05 Method Of Arrival: Walkin/Carried/Asstd jo3 21:05 Acuity: LIZZETTE Level 3 jo3 21:11 Presenting complaint: Patient states: History of SVT with cardiac ablation and jo3 paroxysmal atrial fib. Has had chest tightness to left anterior chest and dizziness much of the day. Triage Assessment: 21:04 HIV screening NA for this visit Offered previously. 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 aspirin 81 mg Oral chew 1 tab once daily 2. diltiazem HCl 120 mg Oral cpER 1 cap once daily - PMHx: Asthma; hypotension; junctional rhythm; Migraines; Paroxysmal Afib; svt; - PSHx: Cardiac Ablation; Tonsillectomy; - Social history: Smoking status: Patient states was never smoker of tobacco. No barriers to communication noted, The patient speaks fluent Turkish, Speaks appropriately for age. - Family history: Not pertinent. - : The pt / caregiver states he / she is not on anticoagulants. Home medication list is obtained from the patient. - Exposure Risk Screening:: None identified. Screenin:23 Screening information is obtained from the patient. Fall risk: No risks identified. cz Assistance ADL's: requires no assistance with activities of daily living. Abuse/DV Screen: The patient / caregiver reports he/she is: not in a situation that causes fear, pain or injury. Nutritional screening: No deficits noted. Advance Directives: Currently, there is no health care proxy. There is no active DNR order. There is no living will. There is no Power of Setter Off. Advance directive information has not previously been placed in an [facility] medical record. home support is adequate. Assessment: 22:23 Reassessment: Patient appears in no apparent distress at this time. Patient states cz feeling better. Vital Signs: 20:57 BP 120 / 69; Pulse 82; Resp 18 S; Temp 97.7(O); Pulse Ox 100% on R/A; Weight 61.23 kg gr2 (R); Height 5 ft. 3 in. (160.02 cm) (R); Pain 4/10; 22:16 BP 115 / 80; Pulse 75; Resp 18; Temp 98.3(TE); Pulse Ox 99% on R/A; Pain 6/10; mdr 20:57 Body Mass Index 23.91 (61.23 kg, 160.02 cm) gr2 Vitals: 20:57 Log In Time: October 20, 2016 at 20:57. RN notified that patient meets Red Flag gr2 criteria. ED Course: 20:57 Patient visited by Pablito Sanchez. gr2 20:57 Cipriano Capps is Private Physician. gr2 20:57 Patient moved to Waiting gr2 21:00 Patient visited by Pablito Sanchez. gr2 21:00 Patient moved to PR / cz 21:07 Patient visited by Su Mcdaniel,NADER. jo3 21:07 Triage Initiated jo3 21:12 Patient visited by Jonathan Gamboa PCA. mdr 21:12 Patient visited by Su Mcdaniel,NADER. jo3 21:12 EKG done. (by ED staff). Reviewed by Kee Carrillo DO. mdr 21:19 Patient moved to Pre RCE jo3 21:53 Patient moved to Triage 2 cz 21:56 Shaheen Rashid PA is PHCP. mo1 21:56 Kee Carrillo DO is Attending Physician. mo1 22:01 Patient visited by Shaheen Rashid PA. mo1 22:16 Patient visited by Jonathan Gamboa PCA. mdr 22:19 Cipriano Capps is Referral Physician. mo1 22:23 Patient moved to TR3 mdr 22:23 The patient / caregiver is instructed regarding the plan of care and ED course. Cardiac cz monitoring not applicable on this patient. 22:23 No IV's were initiated during this patient's visit. No procedures done that require cz assistance. Order Results: There are currently no results for this order. Outcome: 22:19 Discharge ordered by Provider. mo1 22:23 Discharge Assessment: Patient awake, alert and oriented x 3. No cognitive and/or cz functional deficits noted. Patient verbalized understanding of disposition instructions. patient administered narcotics - no. The following High Risk Discharge criteria are identified: None. Discharged to home ambulatory, with family. Condition: stable. Discharge instructions given to patient, Instructed on discharge instructions, follow up and referral plans. No special radiology studies were completed. Property :Personal belongings accompany Pt. 22:26 Patient left the ED. cz Signatures: Hola Miller, RN RN cz Su Mcdaniel RN RN Pablito Morse Michael, PA PA mo1 Jonathan Gamboa, CAROLINE TRAIN ATTENDANT mdr YU
--- NOTE | 2016-10-20 22:27 | EDDOCDS ---
Physician Documentation [facility] Name: Cinthia Powers Age: 26 yrs Sex: Female : 1990 Arrival Date: 10/20/2016 Time: 20:55 Bed TR3 Private MD: Cipriano Capps MD Disposition: 10/20/16 22:19 Discharged to Home/Self Care. Impression: Palpitations. - Condition is Stable. - Discharge Instructions: Palpitations, Atrial Flutter. - Medication Reconciliation, Local Pharmacy Hours form. - Follow up: Cipriano Capps; When: Call to arrange an appointment; Reason: Recheck today's complaints, Continuance of care. - Problem is an ongoing problem. - Symptoms have improved. Historical: - Allergies: Sudafedsyncope; - Home Meds: 1. aspirin 81 mg Oral chew 1 tab once daily 2. diltiazem HCl 120 mg Oral cpER 1 cap once daily - PMHx: Asthma; hypotension; junctional rhythm; Migraines; Paroxysmal Afib; svt; - PSHx: Cardiac Ablation; Tonsillectomy; - Social history: Smoking status: Patient states was never smoker of tobacco. No barriers to communication noted, The patient speaks fluent Irish, Speaks appropriately for age. - Family history: Not pertinent. - : The pt / caregiver states he / she is not on anticoagulants. Home medication list is obtained from the patient. - Exposure Risk Screening:: None identified. 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 3 in. (160.02 cm) (R); Pain 4/10; 22:16 BP 115 / 80; Pulse 75; Resp 18; Temp 98.3(TE); Pulse Ox 99% on R/A; Pain 6/10; mdr 20:57 Body Mass Index 23.91 (61.23 kg, 160.02 cm) gr2 MDM: 21:02 ECG WITH READING ER PHYS+CARDIAG ordered. EDMS 22:24 Financial registration complete. gjb Signatures: Dispatcher [employer] EDMS Zecher, Hola, RN RN cz Su Mcdaniel RN RN yan3 Shaheen Rashid PA PA mo1 Beck, Gabriela gjb JASOND
--- NOTE | 2016-10-21 21:15 | ECGEPIP ---
Stationary ECG Study [facility] - ED Test Date: 2016-10-20 Pat Name: GÉNESIS MICHAELS Department: Room: - Gender: F Home Day Care Provider: mr : 1990 Requested By: OLAF Etienne Order Number: [id number] Reading MD: Divine Patricio Measurements Intervals [place] Rate: 71 P: -17 HI: 147 QRS: 86 QRSD: 80 T: 66 QT: 369 QTc: 401 Interpretive Statements SINUS RHYTHM DECREASED RATE 09/27/16 Electronically Signed On 10-21-2016 21:15:36 EST by Divine Patricio
--- NOTE | 2016-10-22 23:27 | EDDOCDS ---
Nurse's Notes [facility] Name: Cinthia Michaels Age: 26 yrs Sex: Female : 1990 Arrival Date: 10/20/2016 Time: 20:55 Bed TR3 Private MD: Cipriano Capps MD Diagnosis: Palpitations Presentation: 10/20 21:05 Adult Sepsis Screening: The patient does not have new or worsening altered mentation. jo3 Patient's respiratory rate is less than 22. Systolic blood pressure is greater than 100. Patient has a qSOFA score of 0- Negative Sepsis Screen. Suicide/Homicide risk assessment- the patient denies having any suicidal and/or homicidal ideations and does not present with any other emotional, behavioral or mental health complaints. Status: The patient is a dependent. Transition of care: patient was not received from another setting of care. 21:05 Method Of Arrival: Walkin/Carried/Asstd jo3 21:05 Acuity: LIZZETTE Level 3 jo3 21:11 Presenting complaint: Patient states: History of SVT with cardiac ablation and jo3 paroxysmal atrial fib. Has had chest tightness to left anterior chest and dizziness much of the day. Triage Assessment: 21:04 HIV screening NA for this visit Offered previously. 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 aspirin 81 mg Oral chew 1 tab once daily 2. diltiazem HCl 120 mg Oral cpER 1 cap once daily - PMHx: Asthma; hypotension; junctional rhythm; Migraines; Paroxysmal Afib; svt; - PSHx: Cardiac Ablation; Tonsillectomy; - Social history: Smoking status: Patient states was never smoker of tobacco. No barriers to communication noted, The patient speaks fluent Latvian, Speaks appropriately for age. - Family history: Not pertinent. - : The pt / caregiver states he / she is not on anticoagulants. Home medication list is obtained from the patient. - Exposure Risk Screening:: None identified. Screenin:23 Screening information is obtained from the patient. Fall risk: No risks identified. cz Assistance ADL's: requires no assistance with activities of daily living. Abuse/DV Screen: The patient / caregiver reports he/she is: not in a situation that causes fear, pain or injury. Nutritional screening: No deficits noted. Advance Directives: Currently, there is no health care proxy. There is no active DNR order. There is no living will. There is no Power of Site Project Manager. Advance directive information has not previously been placed in an [facility] medical record. home support is adequate. Assessment: 22:23 Reassessment: Patient appears in no apparent distress at this time. Patient states cz feeling better. Vital Signs: 20:57 BP 120 / 69; Pulse 82; Resp 18 S; Temp 97.7(O); Pulse Ox 100% on R/A; Weight 61.23 kg gr2 (R); Height 5 ft. 3 in. (160.02 cm) (R); Pain 4/10; 22:16 BP 115 / 80; Pulse 75; Resp 18; Temp 98.3(TE); Pulse Ox 99% on R/A; Pain 6/10; mdr 20:57 Body Mass Index 23.91 (61.23 kg, 160.02 cm) gr2 Vitals: 20:57 Log In Time: October 20, 2016 at 20:57. RN notified that patient meets Red Flag gr2 criteria. ED Course: 20:57 Patient visited by Pablito Sanchez. gr2 20:57 Cipriano Capps is Private Physician. gr2 20:57 Patient moved to Waiting gr2 21:00 Patient visited by Pablito Sanchez. gr2 21:00 Patient moved to PR / cz 21:07 Patient visited by Su Mcdaniel,NADER. jo3 21:07 Triage Initiated jo3 21:12 Patient visited by Jonathan Gamboa PCA. mdr 21:12 Patient visited by Su Mcdaniel,NADER. jo3 21:12 EKG done. (by ED staff). Reviewed by Olaf Carrillo DO. mdr 21:19 Patient moved to Pre RCE jo3 21:53 Patient moved to Triage 2 cz 21:56 Shaheen Rashid PA is PHCP. mo1 21:56 Olaf Carrillo DO is Attending Physician. mo1 22:01 Patient visited by Shaheen Rashid PA. mo1 22:16 Patient visited by Jonathan Gamboa PCA. mdr 22:19 Cipriano Capps is Referral Physician. mo1 22:23 Patient moved to TR3 mdr 22:23 The patient / caregiver is instructed regarding the plan of care and ED course. Cardiac cz monitoring not applicable on this patient. 22:23 No IV's were initiated during this patient's visit. No procedures done that require cz assistance. 22:33 [facility] Payment Agreement was scanned into [employer] and attached to record. gjb 10/21 11:57 T-Sheet-- Draft Copy was scanned into [employer] and attached to record. gb 11:57 ECG/EKG was scanned into [employer] and attached to record. gb 21:18 EKG-ADULT Returned. EDMS Order Results: Radiology Order: EKG-ADULT Test: EKG-ADULT REASON FOR EXAMINATION: Chest Pain; Stationary ECG Study; [facility] - ED; ; Test Date: 2016-10-20; Pat Name: CINTHIA MICHAELS Department:; Room: -; Gender: F Returned Item Clerk: mr; : 1990 Requested By: OLAF Etienne; Order Number: [id number] Reading MD: Divine Patricio; Measurements; Intervals [place]; Rate: 71 P: -17; HI: 147 QRS: 86; QRSD: 80 T: 66; QT: 369; QTc: 401; Interpretive Statements; SINUS RHYTHM; DECREASED RATE 09/27/16; Electronically Signed On 10-21-2016 21:15:36 EST by Divine Patricio; Outcome: 10/20 22:19 Discharge ordered by Provider. mo1 22:23 Discharge Assessment: Patient awake, alert and oriented x 3. No cognitive and/or cz functional deficits noted. Patient verbalized understanding of disposition instructions. patient administered narcotics - no. The following High Risk Discharge criteria are identified: None. Discharged to home ambulatory, with family. Condition: stable. Discharge instructions given to patient, Instructed on discharge instructions, follow up and referral plans. No special radiology studies were completed. Property :Personal belongings accompany Pt. 22:26 Patient left the ED. cz Signatures: Dispatcher [employer] EDMS Hola Miller RN RN cz Barnhardt, Gloria, Edison Reg Su Luna RN RN jo3 Raymond, Gainslee gr2 Shaheen Rashid PA PA mo1 Jonathan Gamboa, COIL WRAPPER COIL WRAPPER mdr Lindsey Saxena Chart Complete MTDD
--- NOTE | 2016-10-22 23:27 | EDDOCDS ---
Physician Documentation [facility] Name: Cinthia Powers Age: 26 yrs Sex: Female : 1990 Arrival Date: 10/20/2016 Time: 20:55 Bed TR3 Private MD: Cipriano Capps MD Disposition: 10/20/16 22:19 Discharged to Home/Self Care. Impression: Palpitations. - Condition is Stable. - Discharge Instructions: Palpitations, Atrial Flutter. - Medication Reconciliation, Local Pharmacy Hours form. - Follow up: Cipriano Capps; When: Call to arrange an appointment; Reason: Recheck today's complaints, Continuance of care. - Problem is an ongoing problem. - Symptoms have improved. Historical: - Allergies: Sudafedsyncope; - Home Meds: 1. aspirin 81 mg Oral chew 1 tab once daily 2. diltiazem HCl 120 mg Oral cpER 1 cap once daily - PMHx: Asthma; hypotension; junctional rhythm; Migraines; Paroxysmal Afib; svt; - PSHx: Cardiac Ablation; Tonsillectomy; - Social history: Smoking status: Patient states was never smoker of tobacco. No barriers to communication noted, The patient speaks fluent Danish, Speaks appropriately for age. - Family history: Not pertinent. - : The pt / caregiver states he / she is not on anticoagulants. Home medication list is obtained from the patient. - Exposure Risk Screening:: None identified. 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 3 in. (160.02 cm) (R); Pain 4/10; 22:16 BP 115 / 80; Pulse 75; Resp 18; Temp 98.3(TE); Pulse Ox 99% on R/A; Pain 6/10; mdr 20:57 Body Mass Index 23.91 (61.23 kg, 160.02 cm) gr2 MDM: 21:02 ECG WITH READING ER PHYS+CARDIAG ordered. EDMS 22:24 Financial registration complete. gjb 22:33 [facility] Payment Agreement was scanned into [employer] and attached to record. gjb 10/21 11:57 T-Sheet-- Draft Copy was scanned into [employer] and attached to record. gb 11:57 ECG/EKG was scanned into [employer] and attached to record. gb Signatures: Dispatcher [employer] EDHola Lugo RN RN cz Barnhardt, Gloria, Edison Reg Su Luna RN RN jo3 Shaheen Rashid PA PA mo1 Beck, Gabriela gj The chart was reviewed and I authenticate all verbal orders and agree with the evaluation and treatment provided.Attachments: 10/20 22:33 [facility] Payment Agreement b 10/21 11:57 T-Sheet-- Draft Copy gb 11:57 ECG/EKG gb Chart Complete MTDD
--- NOTE | 2016-10-22 23:27 | EDDOCDS ---
Physician Documentation [facility] Name: Cinthia Powers Age: 26 yrs Sex: Female : 1990 Arrival Date: 10/20/2016 Time: 20:55 Bed TR3 Private MD: Cipriano Capps MD Disposition: 10/20/16 22:19 Discharged to Home/Self Care. Impression: Palpitations. - Condition is Stable. - Discharge Instructions: Palpitations, Atrial Flutter. - Medication Reconciliation, Local Pharmacy Hours form. - Follow up: Cipriano Capps; When: Call to arrange an appointment; Reason: Recheck today's complaints, Continuance of care. - Problem is an ongoing problem. - Symptoms have improved. Historical: - Allergies: Sudafedsyncope; - Home Meds: 1. aspirin 81 mg Oral chew 1 tab once daily 2. diltiazem HCl 120 mg Oral cpER 1 cap once daily - PMHx: Asthma; hypotension; junctional rhythm; Migraines; Paroxysmal Afib; svt; - PSHx: Cardiac Ablation; Tonsillectomy; - Social history: Smoking status: Patient states was never smoker of tobacco. No barriers to communication noted, The patient speaks fluent Turkmen, Speaks appropriately for age. - Family history: Not pertinent. - : The pt / caregiver states he / she is not on anticoagulants. Home medication list is obtained from the patient. - Exposure Risk Screening:: None identified. 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 3 in. (160.02 cm) (R); Pain 4/10; 22:16 BP 115 / 80; Pulse 75; Resp 18; Temp 98.3(TE); Pulse Ox 99% on R/A; Pain 6/10; mdr 20:57 Body Mass Index 23.91 (61.23 kg, 160.02 cm) gr2 MDM: 21:02 ECG WITH READING ER PHYS+CARDIAG ordered. EDMS 22:24 Financial registration complete. gjb 22:33 [facility] Payment Agreement was scanned into [employer] and attached to record. gjb 10/21 11:57 T-Sheet-- Draft Copy was scanned into [employer] and attached to record. gb 11:57 ECG/EKG was scanned into [employer] and attached to record. gb Signatures: Dispatcher [employer] EDHola Lugo RN RN cz Barnhardt, Gloria, Edison Reg Su Luna RN RN jo3 Shaheen Rashid PA PA mo1 Beck, Gabriela gj The chart was reviewed and I authenticate all verbal orders and agree with the evaluation and treatment provided.Attachments: 10/20 22:33 [facility] Payment Agreement b 10/21 11:57 T-Sheet-- Draft Copy gb 11:57 ECG/EKG gb Chart Complete MTDD
== END 2016-10-20 22:26 | disposition home or self-care (01) ==
LOC: M ED 20:55
DX: R07.89 Other chest pain (principal); R00.2 Palpitations; R06.02 Shortness of breath; J45.909 Unspecified asthma, uncomplicated; G43.909 Migraine, unspecified, not intractable, without status migrainosus; I48.0 Paroxysmal atrial fibrillation; I95.9 Hypotension, unspecified; I47.1 Supraventricular tachycardia; Z79.899 Other long term (current) drug therapy; Z79.82 Long term (current) use of aspirin; Z88.8 Allergy status to other drugs, medicaments and biological substances

== ENCOUNTER 2016-11-07 14:31 | Emergency (ER) | payer OTHER ==
--- NOTE | 2016-11-07 16:11 | EDDOCDS ---
Nurse's Notes [facility] Name: Cinthia Powers Age: 26 yrs Sex: Female : 1990 Arrival Date: 11/07/2016 Time: 14:31 Bed 14 Private MD: Alisha [facility] Diagnosis: Palpitations Presentation: 11/07 14:37 Presenting complaint: Patient states: chest pain palpitations and nausea that started [facility] 20 minutes ago.has had cardiac ablation in 2013 for SVT. Appt with cardiology in [place] this Monday. took 81 mg aspirin at 0800. Adult Sepsis Screening: The patient does not have new or worsening altered mentation. Patient's respiratory rate is less than 22. Systolic blood pressure is greater than 100. Patient has a qSOFA score of 0- Negative Sepsis Screen. Suicide/Homicide risk assessment- the patient denies having any suicidal and/or homicidal ideations and does not present with any other emotional, behavioral or mental health complaints. Status: The patient is a dependent. Transition of care: patient was not received from another setting of care. 14:37 Acuity: LIZZETTE Level 2 [facility] 14:37 Method Of Arrival: Walkin/Carried/Asstd [facility] Triage Assessment: 14:41 General: Appears well nourished, well groomed, Behavior is appropriate for age, kpj pleasant. Pain: Location: anterior aspect of left upper chest and left breast Pain currently is 8 out of 10 on a pain scale. Quality of pain is described as aching. Pt Declines HIV testing. The patient is triaged at the bedside. See Assessment in Nurses Notes section of ED record. Cardiovascular: Chest pain is described as Pain is 8 out of 10 on a pain scale. quality is aching is located in left anterior chest wall radiates Does not radiate. episodes are continuous began 30 minutes prior to arrival. 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 aspirin 81 mg Oral tab 1 tab once daily (Last dose: 11/07/2016 08:00) 2. diltiazem HCl 120 mg Oral cpER 1 cap once daily (Last dose: 11/07/2016 08:00) 3. Prozac 20 mg Oral cap 1 cap nightly (Last dose: 11/06/2016) - PMHx: Asthma; Migraines; Paroxysmal Afib; svt; - PSHx: Cardiac Ablation; Tonsillectomy; - The history from nurses notes was reviewed: and I agree with what is documented. - Social history: Smoking status: Patient states former smoker of tobacco. No barriers to communication noted, The patient speaks fluent [place]. - : The pt / caregiver states he / she is not on anticoagulants. Home medication list is obtained from the patient. - Hospitalizations: : No recent hospitalization is reported. - Exposure Risk Screening:: None identified. - Immunization history:: All immunizations up-to-date. - Family history: Not pertinent. - Social history:: the patient is a non-smoker, the patient does not drink alcohol, the patient does not use illicit drugs. Screenin:59 Screening information is obtained from the patient. Fall risk: No risks identified. hs1 Assistance ADL's: requires no assistance with activities of daily living. Abuse/DV Screen: The patient / caregiver reports he/she is: not in a situation that causes fear, pain or injury. Nutritional screening: No deficits noted. Advance Directives: There is no active DNR order. home support is adequate. Assessment: 14:58 General: Appears in no apparent distress, Behavior is anxious, appropriate for age, hs1 cooperative. Pain: Location: chest Pain currently is 8 out of 10 on a pain scale. Neurological: Reports weakness. Cardiovascular: Rhythm is sinus rhythm No ectopy. Respiratory: Airway is patent Respiratory effort is even, unlabored, Respiratory pattern is regular, symmetrical, Breath sounds are clear bilaterally. : Urine is clear. Derm: Skin is pink, warm & dry. normal. 16:08 Reassessment: Patient denies pain at this time. Patient states feeling better. Patient hs1 states symptoms have improved. General: Appears in no apparent distress, comfortable, Behavior is appropriate for age, cooperative. Cardiovascular: Rhythm is sinus rhythm No ectopy. Vital Signs: 14:34 BP 126 / 71; Pulse 108; Resp 17; Temp 97.4(O); Pulse Ox 100% ; Weight 61.23 kg (R); lr2 Height 5 ft. 3 in. (160.02 cm) (R); Pain 8/10; 14:42 BP 130 / 71 (auto/); hs1 14:42 Pulse 94 MON; Pulse Ox 100% ; hs1 15:11 Pulse 72 MON; Pulse Ox 98% ; hs1 15:12 BP 109 / 66 (auto/); hs1 15:42 BP 106 / 65 (auto/); hs1 15:42 Pulse 72 MON; Pulse Ox 97% ; hs1 16:10 BP 110 / 67; Pulse 72; Resp 18; Temp 97.8(TE); Pulse Ox 100% ; Pain 0/10; hs1 14:34 Body Mass Index 23.91 (61.23 kg, 160.02 cm) lr2 Vitals: 14:31 RN notified that patient meets Red Flag criteria. lr2 14:34 Log In Time: November 07, 2016 at 14:31. lr2 ED Course: 14:32 Patient visited by Esme Andrews. lr2 14:32 Patient moved to Waiting lr2 14:35 Alisha [facility] is Private Physician. lr2 14:35 Leslie Patel, NADER is Primary Nurse. ead 14:35 Patient moved to 14 ead 14:40 Triage Initiated kpj 14:41 EKG done. (by ED staff). Reviewed by Mariano Mahan MD. nb2 14:44 Mariano Mahan MD is Attending Physician. pc 14:46 Patient visited by Lilo Arellano. nb2 14:46 Placed in gown. Bed in low position. Call light in reach. Side rails up X2. Cardiac nb2 monitor on. Pulse ox on. NIBP on. 15:00 Inserted saline lock: 20 gauge in left antecubital area and blood collected. The hs1 patient tolerated the procedure well. 15:01 Patient visited by Lilo Arellano. nb2 15:03 The patient / caregiver is instructed regarding the plan of care and ED course. hs1 15:12 Patient visited by Mariano Mahan MD. pc 16:05 [facility] Payment Agreement was scanned into [employer] and attached to record. gjb 16:08 Discontinued IV lock intact, bleeding controlled, pressure dressing applied, No hs1 redness/swelling at site. No procedures done that require assistance. Point of Care Testing: Urine : 15:01 hCG Reading: Negative; Control Reading: Positive; nb2 Ranges: Order Results: There are currently no results for this order. Outcome: 15:42 Discharge ordered by Provider. pc 16:09 Discharge Assessment: Patient awake, alert and oriented x 3. No cognitive and/or hs1 functional deficits noted. Patient verbalized understanding of disposition instructions. patient administered narcotics - no. The following High Risk Discharge criteria are identified: None. Discharged to home ambulatory, with family. Condition: stable. Discharge instructions given to patient, Instructed on discharge instructions, follow up and referral plans. medication usage, Demonstrated understanding of instructions, medications, Pt was receptive of discharge instructions/ teaching. No special radiology studies were completed. Property sent home with patient. 16:10 Patient left the ED. hs1 Signatures: Mariano Mahan MD MD pc Jobson, Karen RN RN Leslie Holloway RN RN hs1 Roberta Patterson RN RN Lindsey Walter Nicole nb2 Esme Andrews2 Corrections: (The following items were deleted from the chart) 15:17 14:41 PMHx: hypotension; [facility] 15:17 14:41 PMHx: junctional rhythm; [facility] 16:10 14:42 BP 110 / 67; Pulse 72bpm; Resp 18bpm; Pulse Ox 100%; Temp 97.8F Temporal; Pain hs1 0/10; hs1 MTDD
--- NOTE | 2016-11-07 16:11 | EDDOCDS ---
Physician Documentation [facility] Name: Cinthia Powers Age: 26 yrs Sex: Female : 1990 Arrival Date: 11/07/2016 Time: 14:31 Bed 14 Private MD: Alisha [facility] Disposition: 11/07 15:17 Critical Care: Critical care not applicable. pc Disposition: 11/07/16 15:42 Discharged to Home/Self Care. Impression: Palpitations. - Condition is Stable. - Discharge Instructions: Palpitations. - Medication Reconciliation, Local Pharmacy Hours form. - Follow up: Private Physician; When: Dr. Bland, on Monday; Reason: Further diagnostic work-up. - Problem is an acute exacerbation. - Symptoms are resolved. HPI: 15:17 This 26 yrs old Female presents to ER via Walkin/Carried/Asstd with pc complaints of Palpitations. 15:17 The history is obtained from the patient. pc 15:17 She has a history of SVT with ablation in 2013 and has recently developed AFib. 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 She has been having recurrent episodes of palpitations and subsequent chest tightness, with 4 ED visits in the past 5 weeks for the same, with another episode occurring today. She presents in sinus rhythm and very anxious. The patient has been recently seen at the [facility], a couple of weeks ago, for similar complaints. Of note, all of her lab evaluations in the past 2 months have been normal. Historical: - Allergies: Sudafedsyncope; - Home Meds: 1. aspirin 81 mg Oral tab 1 tab once daily (Last dose: 11/07/2016 08:00) 2. diltiazem HCl 120 mg Oral cpER 1 cap once daily (Last dose: 11/07/2016 08:00) 3. Prozac 20 mg Oral cap 1 cap nightly (Last dose: 11/06/2016) - PMHx: Asthma; Migraines; Paroxysmal Afib; svt; - PSHx: Cardiac Ablation; Tonsillectomy; - The history from nurses notes was reviewed: and I agree with what is documented. - Social history: Smoking status: Patient states former smoker of tobacco. No barriers to communication noted, The patient speaks fluent [place]. - : The pt / caregiver states he / she is not on anticoagulants. Home medication list is obtained from the patient. - Hospitalizations: : No recent hospitalization is reported. - Exposure Risk Screening:: None identified. - Immunization history:: All immunizations up-to-date. - Family history: Not pertinent. - Social history:: the patient is a non-smoker, the patient does not drink alcohol, the patient does not use illicit drugs. 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 pc Exam: 15:17 General Appearance: no acute distress, alert, anxious. pc 15:17 EENT: normal eye inspection, ears, nose and throat normal, pharynx normal, mucous membranes moist 15:17 Neck: The exam reveals no acute abnormalities. ROM is normal and painless. No nuchal rigidity is noted.. 15:17 Respiratory: no respiratory distress, chest non-tender. 15:17 CVS: regular pulse rate, regular rhythm, normal S1 and S2, no murmurs, strong peripheral pulses. 15:17 Abdomen: soft, non-tender, no organomegaly, normal bowel sounds. 15:17 Back: normal inspection. 15:17 Skin: skin color is normal, warm, dry. 15:17 Extremities: The extremities have a grossly normal appearance, are non-tender, without acute ROM abnormalities. 15:17 Neuro: oriented x 3, cranial nerves normal as tested, no motor deficits. 15:17 Psych: normal mood, affect is appropriate. Vital Signs: 14:34 BP 126 / 71; Pulse 108; Resp 17; Temp 97.4(O); Pulse Ox 100% ; Weight 61.23 kg / 134.99 lr2 lbs (R); Height 5 ft. 3 in. (160.02 cm) (R); Pain 8/10; 14:42 BP 130 / 71 (auto/); hs1 14:42 Pulse 94 MON; Pulse Ox 100% ; hs1 15:11 Pulse 72 MON; Pulse Ox 98% ; hs1 15:12 BP 109 / 66 (auto/); hs1 15:42 BP 106 / 65 (auto/); hs1 15:42 Pulse 72 MON; Pulse Ox 97% ; hs1 16:10 BP 110 / 67; Pulse 72; Resp 18; Temp 97.8(TE); Pulse Ox 100% ; Pain 0/10; hs1 14:34 Body Mass Index 23.91 (61.23 kg, 160.02 cm) lr2 MDM: 14:35 ECG WITH READING ER PHYS+CARDIAG ordered. EDMS 15:17 Differential Diagnosis: palpitations, anxiety reaction, Hx of SVT and AFib. Plan: pc review triaged EKG, reassurance. Data reviewed: old medical records, vital signs, nurses notes, EKG(s). Test interpretation: EKG. The patient has been re-examined and re-evaluated. The clinical presentation did not require any ED treatment or interventions. Disposition: The historical points, examination findings, and any diagnostic results supporting the provided diagnosis, were discussed with the patient or legal guardian. The need for outpatient follow up with the provider listed on their discharge instructions was discussed. They were encouraged to return to [facility], or the nearest ED, if symptoms worsen/persist, or for any other questions/concerns. 15:40 Physician consultation: Dr. Florencio Roth was contacted at 15:40, regarding patient's pc condition, and he advises no further ED work up and to have her follow with EP in 2 days as scheduled. 15:56 Financial registration complete. [facility] 16:05 [facility] Payment Agreement was scanned into [employer] and attached to record. [facility] EC:17 Rate is 98 beats/min. Rhythm is regular, Sinus tachycardia. QRS [place] is Normal. LA pc interval is normal. QRS interval is normal. QT interval is normal. No Q waves. T waves are Normal. No ST changes noted. Clinical impression: Normal Sinus Rhythm. Point of Care Testing: Urine : 15:01 hCG Reading: Negative; Control Reading: Positive; nb2 Ranges: Signatures: Dispatcher [employer] EDMS Mariano Mahan MD MD pc Jobson, Karen, RN RN kpj Sherrill, Hannah, RN RN 1 Lindsey Saxena The chart was reviewed and I authenticate all verbal orders and agree with the evaluation and treatment provided.Corrections: (The following items were deleted from the chart) 15:17 14:41 PMHx: hypotension; [facility] pc 15:17 14:41 PMHx: junctional rhythm; [facility] pc Attachments: 16:05 [facility] Payment Agreement gjb MTDD
--- NOTE | 2016-11-09 09:54 | ECGEPIP ---
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
--- NOTE | 2016-11-09 17:12 | EDDOCDS ---
Physician Documentation [facility] Name: Cinthia Powers Age: 26 yrs Sex: Female : 1990 Arrival Date: 11/07/2016 Time: 14:31 Bed 14 Private MD: Alisah [facility] Disposition: 11/07 15:17 Critical Care: Critical care not applicable. pc Disposition: 11/07/16 15:42 Discharged to Home/Self Care. Impression: Palpitations. - Condition is Stable. - Discharge Instructions: Palpitations. - Medication Reconciliation, Local Pharmacy Hours form. - Follow up: Private Physician; When: Dr. Bland, on Monday; Reason: Further diagnostic work-up. - Problem is an acute exacerbation. - Symptoms are resolved. HPI: 15:17 This 26 yrs old Female presents to ER via Walkin/Carried/Asstd with pc complaints of Palpitations. 15:17 The history is obtained from the patient. pc 15:17 She has a history of SVT with ablation in 2013 and has recently developed AFib. She has pc been seen by Cardiology locally and is to see an EP Manager Diabetes in [place] in 2 days for consideration of repeat ablation. She has been having recurrent episodes of palpitations and subsequent chest tightness, with 4 ED visits in the past 5 weeks for the same, with another episode occurring today. She presents in sinus rhythm and very anxious. The patient has been recently seen at the [facility], a couple of weeks ago, for similar complaints. Of note, all of her lab evaluations in the past 2 months have been normal. Historical: - Allergies: Sudafedsyncope; - Home Meds: 1. aspirin 81 mg Oral tab 1 tab once daily (Last dose: 11/07/2016 08:00) 2. diltiazem HCl 120 mg Oral cpER 1 cap once daily (Last dose: 11/07/2016 08:00) 3. Prozac 20 mg Oral cap 1 cap nightly (Last dose: 11/06/2016) - PMHx: Asthma; Migraines; Paroxysmal Afib; svt; - PSHx: Cardiac Ablation; Tonsillectomy; - The history from nurses notes was reviewed: and I agree with what is documented. - Social history: Smoking status: Patient states former smoker of tobacco. No barriers to communication noted, The patient speaks fluent Bulgarian. - : The pt / caregiver states he / she is not on anticoagulants. Home medication list is obtained from the patient. - Hospitalizations: : No recent hospitalization is reported. - Exposure Risk Screening:: None identified. - Immunization history:: All immunizations up-to-date. - Family history: Not pertinent. - Social history:: the patient is a non-smoker, the patient does not drink alcohol, the patient does not use illicit drugs. 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 pc Exam: 15:17 General Appearance: no acute distress, alert, anxious. pc 15:17 EENT: normal eye inspection, ears, nose and throat normal, pharynx normal, mucous membranes moist 15:17 Neck: The exam reveals no acute abnormalities. ROM is normal and painless. No nuchal rigidity is noted.. 15:17 Respiratory: no respiratory distress, chest non-tender. 15:17 CVS: regular pulse rate, regular rhythm, normal S1 and S2, no murmurs, strong peripheral pulses. 15:17 Abdomen: soft, non-tender, no organomegaly, normal bowel sounds. 15:17 Back: normal inspection. 15:17 Skin: skin color is normal, warm, dry. 15:17 Extremities: The extremities have a grossly normal appearance, are non-tender, without acute ROM abnormalities. 15:17 Neuro: oriented x 3, cranial nerves normal as tested, no motor deficits. 15:17 Psych: normal mood, affect is appropriate. Vital Signs: 14:34 BP 126 / 71; Pulse 108; Resp 17; Temp 97.4(O); Pulse Ox 100% ; Weight 61.23 kg / 134.99 lr2 lbs (R); Height 5 ft. 3 in. (160.02 cm) (R); Pain 8/10; 14:42 BP 130 / 71 (auto/); hs1 14:42 Pulse 94 MON; Pulse Ox 100% ; hs1 15:11 Pulse 72 MON; Pulse Ox 98% ; hs1 15:12 BP 109 / 66 (auto/); hs1 15:42 BP 106 / 65 (auto/); hs1 15:42 Pulse 72 MON; Pulse Ox 97% ; hs1 16:10 BP 110 / 67; Pulse 72; Resp 18; Temp 97.8(TE); Pulse Ox 100% ; Pain 0/10; hs1 14:34 Body Mass Index 23.91 (61.23 kg, 160.02 cm) lr2 MDM: 14:35 ECG WITH READING ER PHYS+CARDIAG ordered. EDMS 15:17 Differential Diagnosis: palpitations, anxiety reaction, Hx of SVT and AFib. Plan: pc review triaged EKG, reassurance. Data reviewed: old medical records, vital signs, nurses notes, EKG(s). Test interpretation: EKG. The patient has been re-examined and re-evaluated. The clinical presentation did not require any ED treatment or interventions. Disposition: The historical points, examination findings, and any diagnostic results supporting the provided diagnosis, were discussed with the patient or legal guardian. The need for outpatient follow up with the provider listed on their discharge instructions was discussed. They were encouraged to return to [facility], or the nearest ED, if symptoms worsen/persist, or for any other questions/concerns. 15:40 Physician consultation: Dr. Florencio Roth was contacted at 15:40, regarding patient's pc condition, and he advises no further ED work up and to have her follow with EP in 2 days as scheduled. 15:56 Financial registration complete. [facility] 16:05 [facility] Payment Agreement was scanned into [employer] and attached to record. [facility] EC:17 Rate is 98 beats/min. Rhythm is regular, Sinus tachycardia. QRS [place] is Normal. [place] pc interval is normal. QRS interval is normal. QT interval is normal. No Q waves. T waves are Normal. No ST changes noted. Clinical impression: Normal Sinus Rhythm. Point of Care Testing: Urine : 15:01 hCG Reading: Negative; Control Reading: Positive; nb2 Ranges: Signatures: Dispatcher [employer] EDMS Mariano Mahan MD MD pc Jobson, Karen, RN RN kpj Sherrill, Hannah, RN RN 1 Lindsey Saxena The chart was reviewed and I authenticate all verbal orders and agree with the evaluation and treatment provided.Corrections: (The following items were deleted from the chart) 15:17 14:41 PMHx: hypotension; [facility] pc 15:17 14:41 PMHx: junctional rhythm; [facility] pc Attachments: 16:05 [facility] Payment Agreement gjb Chart Complete MTDD
--- NOTE | 2016-11-09 17:12 | EDDOCDS ---
Nurse's Notes [facility] Name: Cinthia Michaels Age: 26 yrs Sex: Female : 1990 Arrival Date: 11/07/2016 Time: 14:31 Bed 14 Private MD: Alisha [facility] Diagnosis: Palpitations Presentation: 11/07 14:37 Presenting complaint: Patient states: chest pain palpitations and nausea that started [facility] 20 minutes ago.has had cardiac ablation in 2013 for SVT. Appt with cardiology in [place] this Monday. took 81 mg aspirin at 0800. Adult Sepsis Screening: The patient does not have new or worsening altered mentation. Patient's respiratory rate is less than 22. Systolic blood pressure is greater than 100. Patient has a qSOFA score of 0- Negative Sepsis Screen. Suicide/Homicide risk assessment- the patient denies having any suicidal and/or homicidal ideations and does not present with any other emotional, behavioral or mental health complaints. Status: The patient is a dependent. Transition of care: patient was not received from another setting of care. 14:37 Acuity: LIZZETTE Level 2 [facility] 14:37 Method Of Arrival: Walkin/Carried/Asstd [facility] Triage Assessment: 14:41 General: Appears well nourished, well groomed, Behavior is appropriate for age, kpj pleasant. Pain: Location: anterior aspect of left upper chest and left breast Pain currently is 8 out of 10 on a pain scale. Quality of pain is described as aching. Pt Declines HIV testing. The patient is triaged at the bedside. See Assessment in Nurses Notes section of ED record. Cardiovascular: Chest pain is described as Pain is 8 out of 10 on a pain scale. quality is aching is located in left anterior chest wall radiates Does not radiate. episodes are continuous began 30 minutes prior to arrival. 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 aspirin 81 mg Oral tab 1 tab once daily (Last dose: 11/07/2016 08:00) 2. diltiazem HCl 120 mg Oral cpER 1 cap once daily (Last dose: 11/07/2016 08:00) 3. Prozac 20 mg Oral cap 1 cap nightly (Last dose: 11/06/2016) - PMHx: Asthma; Migraines; Paroxysmal Afib; svt; - PSHx: Cardiac Ablation; Tonsillectomy; - The history from nurses notes was reviewed: and I agree with what is documented. - Social history: Smoking status: Patient states former smoker of tobacco. No barriers to communication noted, The patient speaks fluent Slovak. - : The pt / caregiver states he / she is not on anticoagulants. Home medication list is obtained from the patient. - Hospitalizations: : No recent hospitalization is reported. - Exposure Risk Screening:: None identified. - Immunization history:: All immunizations up-to-date. - Family history: Not pertinent. - Social history:: the patient is a non-smoker, the patient does not drink alcohol, the patient does not use illicit drugs. Screenin:59 Screening information is obtained from the patient. Fall risk: No risks identified. hs1 Assistance ADL's: requires no assistance with activities of daily living. Abuse/DV Screen: The patient / caregiver reports he/she is: not in a situation that causes fear, pain or injury. Nutritional screening: No deficits noted. Advance Directives: There is no active DNR order. home support is adequate. Assessment: 14:58 General: Appears in no apparent distress, Behavior is anxious, appropriate for age, hs1 cooperative. Pain: Location: chest Pain currently is 8 out of 10 on a pain scale. Neurological: Reports weakness. Cardiovascular: Rhythm is sinus rhythm No ectopy. Respiratory: Airway is patent Respiratory effort is even, unlabored, Respiratory pattern is regular, symmetrical, Breath sounds are clear bilaterally. : Urine is clear. Derm: Skin is pink, warm & dry. normal. 16:08 Reassessment: Patient denies pain at this time. Patient states feeling better. Patient hs1 states symptoms have improved. General: Appears in no apparent distress, comfortable, Behavior is appropriate for age, cooperative. Cardiovascular: Rhythm is sinus rhythm No ectopy. Vital Signs: 14:34 BP 126 / 71; Pulse 108; Resp 17; Temp 97.4(O); Pulse Ox 100% ; Weight 61.23 kg (R); lr2 Height 5 ft. 3 in. (160.02 cm) (R); Pain 8/10; 14:42 BP 130 / 71 (auto/); hs1 14:42 Pulse 94 MON; Pulse Ox 100% ; hs1 15:11 Pulse 72 MON; Pulse Ox 98% ; hs1 15:12 BP 109 / 66 (auto/); hs1 15:42 BP 106 / 65 (auto/); hs1 15:42 Pulse 72 MON; Pulse Ox 97% ; hs1 16:10 BP 110 / 67; Pulse 72; Resp 18; Temp 97.8(TE); Pulse Ox 100% ; Pain 0/10; hs1 14:34 Body Mass Index 23.91 (61.23 kg, 160.02 cm) lr2 Vitals: 14:31 RN notified that patient meets Red Flag criteria. lr2 14:34 Log In Time: November 07, 2016 at 14:31. lr2 ED Course: 14:32 Patient visited by Esme Andrews. lr2 14:32 Patient moved to Waiting lr2 14:35 Alisha [facility] is Private Physician. lr2 14:35 Leslie Patel, NADER is Primary Nurse. ead 14:35 Patient moved to 14 ead 14:40 Triage Initiated [facility] 14:41 EKG done. (by ED staff). Reviewed by Mariano Mahan MD. nb2 14:44 Mariano Mahan MD is Attending Physician. pc 14:46 Patient visited by Lilo Arellano. nb2 14:46 Placed in gown. Bed in low position. Call light in reach. Side rails up X2. Cardiac nb2 monitor on. Pulse ox on. NIBP on. 15:00 Inserted saline lock: 20 gauge in left antecubital area and blood collected. The hs1 patient tolerated the procedure well. 15:01 Patient visited by Lilo Arellano. nb2 15:03 The patient / caregiver is instructed regarding the plan of care and ED course. hs1 15:12 Patient visited by Mariano Mahan MD. pc 16:05 [facility] Payment Agreement was scanned into [employer] and attached to record. gjb 16:08 Discontinued IV lock intact, bleeding controlled, pressure dressing applied, No hs1 redness/swelling at site. No procedures done that require assistance. 11/09 10:05 EKG-ADULT Returned. EDOH Point of Care Testing: Urine : 11/07 15:01 hCG Reading: Negative; Control Reading: Positive; nb2 Ranges: Order Results: Radiology Order: EKG-ADULT Test: EKG-ADULT REASON FOR EXAMINATION: palpitations; Stationary ECG Study; [facility] - ED; ; Test Date: 2016-11-07; Pat Name: CINTHIA MICHAELS Department:; Room: -; Gender: F Desktop Support Technician: jenny; : 1990 Requested By: STEPHIE Serra; Order Number: [id number] Reading MD: Mariano Mahan; Measurements; Intervals [place]; Rate: 98 P: 63; NC: 164 QRS: 73; QRSD: 86 T: 73; QT: 307; QTc: 393; Interpretive Statements; SINUS RHYTHM; NONSPECIFIC T-WAVE ABNORMALITY; SIMILAR TO 10/20/16; Electronically Signed On 11-09-2016 9:54:11 EST by Mariano Mahan; Outcome: 15:42 Discharge ordered by Provider. pc 16:09 Discharge Assessment: Patient awake, alert and oriented x 3. No cognitive and/or hs1 functional deficits noted. Patient verbalized understanding of disposition instructions. patient administered narcotics - no. The following High Risk Discharge criteria are identified: None. Discharged to home ambulatory, with family. Condition: stable. Discharge instructions given to patient, Instructed on discharge instructions, follow up and referral plans. medication usage, Demonstrated understanding of instructions, medications, Pt was receptive of discharge instructions/ teaching. No special radiology studies were completed. Property sent home with patient. 16:10 Patient left the ED. hs1 Signatures: Dispatcher [employer] EDMS Mariano Mahan MD MD pc Jobson, Karen RN Leslie Lr RN RN hs1 Roberta Patterson RN RN ead Beck, Gabriela gjb Baart, Nicole nb2 Esme Andrews2 Corrections: (The following items were deleted from the chart) 15:17 14:41 PMHx: hypotension; [facility] pc 15:17 14:41 PMHx: junctional rhythm; [facility] 16:10 14:42 BP 110 / 67; Pulse 72bpm; Resp 18bpm; Pulse Ox 100%; Temp 97.8F Temporal; Pain hs1 0/10; hs1 Chart Complete MTDD
--- NOTE | 2016-11-09 17:12 | EDDOCDS ---
Physician Documentation [facility] Name: Cinthia Powers Age: 26 yrs Sex: Female : 1990 Arrival Date: 11/07/2016 Time: 14:31 Bed 14 Private MD: Alisha [facility] Disposition: 11/07 15:17 Critical Care: Critical care not applicable. pc Disposition: 11/07/16 15:42 Discharged to Home/Self Care. Impression: Palpitations. - Condition is Stable. - Discharge Instructions: Palpitations. - Medication Reconciliation, Local Pharmacy Hours form. - Follow up: Private Physician; When: Dr. Bland, on Monday; Reason: Further diagnostic work-up. - Problem is an acute exacerbation. - Symptoms are resolved. HPI: 15:17 This 26 yrs old Female presents to ER via Walkin/Carried/Asstd with pc complaints of Palpitations. 15:17 The history is obtained from the patient. pc 15:17 She has a history of SVT with ablation in 2013 and has recently developed AFib. She has pc been seen by Cardiology locally and is to see an EP Automotive Accessory Installer in [place] in 2 days for consideration of repeat ablation. She has been having recurrent episodes of palpitations and subsequent chest tightness, with 4 ED visits in the past 5 weeks for the same, with another episode occurring today. She presents in sinus rhythm and very anxious. The patient has been recently seen at the [facility], a couple of weeks ago, for similar complaints. Of note, all of her lab evaluations in the past 2 months have been normal. Historical: - Allergies: Sudafedsyncope; - Home Meds: 1. aspirin 81 mg Oral tab 1 tab once daily (Last dose: 11/07/2016 08:00) 2. diltiazem HCl 120 mg Oral cpER 1 cap once daily (Last dose: 11/07/2016 08:00) 3. Prozac 20 mg Oral cap 1 cap nightly (Last dose: 11/06/2016) - PMHx: Asthma; Migraines; Paroxysmal Afib; svt; - PSHx: Cardiac Ablation; Tonsillectomy; - The history from nurses notes was reviewed: and I agree with what is documented. - Social history: Smoking status: Patient states former smoker of tobacco. No barriers to communication noted, The patient speaks fluent Lao. - : The pt / caregiver states he / she is not on anticoagulants. Home medication list is obtained from the patient. - Hospitalizations: : No recent hospitalization is reported. - Exposure Risk Screening:: None identified. - Immunization history:: All immunizations up-to-date. - Family history: Not pertinent. - Social history:: the patient is a non-smoker, the patient does not drink alcohol, the patient does not use illicit drugs. 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 pc Exam: 15:17 General Appearance: no acute distress, alert, anxious. pc 15:17 EENT: normal eye inspection, ears, nose and throat normal, pharynx normal, mucous membranes moist 15:17 Neck: The exam reveals no acute abnormalities. ROM is normal and painless. No nuchal rigidity is noted.. 15:17 Respiratory: no respiratory distress, chest non-tender. 15:17 CVS: regular pulse rate, regular rhythm, normal S1 and S2, no murmurs, strong peripheral pulses. 15:17 Abdomen: soft, non-tender, no organomegaly, normal bowel sounds. 15:17 Back: normal inspection. 15:17 Skin: skin color is normal, warm, dry. 15:17 Extremities: The extremities have a grossly normal appearance, are non-tender, without acute ROM abnormalities. 15:17 Neuro: oriented x 3, cranial nerves normal as tested, no motor deficits. 15:17 Psych: normal mood, affect is appropriate. Vital Signs: 14:34 BP 126 / 71; Pulse 108; Resp 17; Temp 97.4(O); Pulse Ox 100% ; Weight 61.23 kg / 134.99 lr2 lbs (R); Height 5 ft. 3 in. (160.02 cm) (R); Pain 8/10; 14:42 BP 130 / 71 (auto/); hs1 14:42 Pulse 94 MON; Pulse Ox 100% ; hs1 15:11 Pulse 72 MON; Pulse Ox 98% ; hs1 15:12 BP 109 / 66 (auto/); hs1 15:42 BP 106 / 65 (auto/); hs1 15:42 Pulse 72 MON; Pulse Ox 97% ; hs1 16:10 BP 110 / 67; Pulse 72; Resp 18; Temp 97.8(TE); Pulse Ox 100% ; Pain 0/10; hs1 14:34 Body Mass Index 23.91 (61.23 kg, 160.02 cm) lr2 MDM: 14:35 ECG WITH READING ER PHYS+CARDIAG ordered. EDMS 15:17 Differential Diagnosis: palpitations, anxiety reaction, Hx of SVT and AFib. Plan: pc review triaged EKG, reassurance. Data reviewed: old medical records, vital signs, nurses notes, EKG(s). Test interpretation: EKG. The patient has been re-examined and re-evaluated. The clinical presentation did not require any ED treatment or interventions. Disposition: The historical points, examination findings, and any diagnostic results supporting the provided diagnosis, were discussed with the patient or legal guardian. The need for outpatient follow up with the provider listed on their discharge instructions was discussed. They were encouraged to return to [facility], or the nearest ED, if symptoms worsen/persist, or for any other questions/concerns. 15:40 Physician consultation: Dr. Florencio Roth was contacted at 15:40, regarding patient's pc condition, and he advises no further ED work up and to have her follow with EP in 2 days as scheduled. 15:56 Financial registration complete. [facility] 16:05 [facility] Payment Agreement was scanned into [employer] and attached to record. [facility] EC:17 Rate is 98 beats/min. Rhythm is regular, Sinus tachycardia. QRS [place] is Normal. [place] pc interval is normal. QRS interval is normal. QT interval is normal. No Q waves. T waves are Normal. No ST changes noted. Clinical impression: Normal Sinus Rhythm. Point of Care Testing: Urine : 15:01 hCG Reading: Negative; Control Reading: Positive; nb2 Ranges: Signatures: Dispatcher [employer] EDMS Mariano Mahan MD MD pc Jobson, Karen, RN RN kpj Sherrill, Hannah, RN RN 1 Lindsey Saxena The chart was reviewed and I authenticate all verbal orders and agree with the evaluation and treatment provided.Corrections: (The following items were deleted from the chart) 15:17 14:41 PMHx: hypotension; [facility] pc 15:17 14:41 PMHx: junctional rhythm; [facility] pc Attachments: 16:05 [facility] Payment Agreement gjb Chart Complete MTDD
== END 2016-11-07 16:10 | disposition home or self-care (01) ==
LOC: M ED 14:31
DX: R00.2 Palpitations (principal); J45.909 Unspecified asthma, uncomplicated; G43.909 Migraine, unspecified, not intractable, without status migrainosus; I48.0 Paroxysmal atrial fibrillation; I47.1 Supraventricular tachycardia; Z87.891 Personal history of nicotine dependence; Z79.82 Long term (current) use of aspirin; Z79.899 Other long term (current) drug therapy; Z88.8 Allergy status to other drugs, medicaments and biological substances

== ENCOUNTER → 2017-09-08 | Outpatient (REF) | payer OTHER | LOC: M LAB REF 11:04 | DX: R53.83 Other fatigue (principal) | CPT/HCPCS: 87804 ==

== ENCOUNTER → 2017-10-12 | Outpatient (REF) | payer OTHER ==
[2017-10-12 15:18] LABS: BASO % 0.7 % (0.0-1.0); EOS # 0.1 10^3/uL (0.0-0.50); EOS % 1.2 % (0.0-3.0); HEMATOCRIT 39.1 % (36.0-47.0); HEMOGLOBIN 12.6 g/dl (12.0-16.0); IMMATURE GRANULOCYTE % 0.2 % (0-0); LYMPH # 1.9 10^3/uL (1.5-6.5); MEAN CORPUSCULAR HEMOGLOBIN 29.4 pg (27.0-33.0); MEAN CORPUSCULAR HGB CONC 32.2 g/dl (32.0-36.5); MEAN CORPUSCULAR VOLUME 91.1 fl (80.0-96.0); MONO # 0.3 10^3/uL (0.0-0.8); MONO % 7.5 % (0.0-5.0); NEUTROPHILS # 1.9 10^3/uL (1.8-7.7); NEUTROPHILS % 45.4 % (36.0-66.0); PLATELET COUNT, AUTOMATED 254 10^3/uL (150-450); RED BLOOD COUNT 4.29 10^6/uL (4.00-5.40); RED CELL DISTRIBUTION WIDTH 12.6 % (11.5-14.5); WHITE BLOOD COUNT 4.2 10^3/uL (4.0-10.0)
[2017-10-12 16:03] LABS: ALBUMIN 4.1 GM/DL (3.2-5.2); ALBUMIN/GLOBULIN RATIO 1.37 (1.00-1.93); ALKALINE PHOSPHATASE 42 U/L (45-117); ALT/SGPT 12 U/L (12-78); ANION GAP 7 MEQ/L (8-16); AST/SGOT 9 U/L (7-37); BILIRUBIN,TOTAL 0.4 MG/DL (0.2-1.0); BLOOD UREA NITROGEN 10 MG/DL (7-18); CALCIUM LEVEL 9.1 MG/DL (8.5-10.1); CARBON DIOXIDE LEVEL 27 MEQ/L (21-32); CHLORIDE LEVEL 108 MEQ/L (98-107); CREATININE FOR GFR 0.56 MG/DL (0.55-1.30); GLOMERULAR FILTRATION RATE > 60.0 (>60); GLUCOSE, FASTING 87 MG/DL (70-100); POTASSIUM SERUM 4.2 MEQ/L (3.5-5.1); SODIUM LEVEL 142 MEQ/L (136-145); TOTAL PROTEIN 7.1 GM/DL (6.4-8.2)
[2017-10-12 16:45] LABS: ESTIMATED AVERAGE GLUCOSE 100 MG/DL (60-110); HEMOGLOBIN A1c 5.1 %
== END ==
LOC: M LAB REF 13:51
DX: R55 Syncope and collapse (principal)
CPT/HCPCS: 84443

== ENCOUNTER 2018-09-09 19:23 | Emergency (ER) | payer OTHER ==
[~2018-09-09] VITALS: Ht 160 cm; Wt 61.4 kg
[2018-09-09] MEDS ORDERED: VITA200016 PO (19:41)
[2018-09-09] MEDS ORDERED: ONDANSETRON 4MG/2ML VIAL (J2405) IV ONE (20:00)
[2018-09-09] MEDS ORDERED: NS 1,000 ML IV ONE (20:00)
[2018-09-09 20:12] LABS: BASO % 0.3 % (0.0-1.0); EOS % 0.4 % (0.0-3.0); HEMATOCRIT 37.7 % (36.0-47.0); HEMOGLOBIN 12.1 g/dl (12.0-15.5); LYMPH % 27.2 % (24.0-44.0); MEAN CORPUSCULAR HEMOGLOBIN 29.3 pg (27.0-33.0); MEAN CORPUSCULAR HGB CONC 32.1 g/dl (32.0-36.5); MEAN CORPUSCULAR VOLUME 91.3 fl (80.0-96.0); MONO # 0.4 10^3/uL (0.0-0.8); MONO % 6.1 % (0.0-5.0); NEUTROPHILS # 4.8 10^3/uL (1.8-7.7); NEUTROPHILS % 65.7 % (36.0-66.0); PLATELET COUNT, AUTOMATED 205 10^3/uL (150-450); RED BLOOD COUNT 4.13 10^6/uL (4.00-5.40); WHITE BLOOD COUNT 7.3 10^3/uL (4.0-10.0)
[2018-09-09 20:33] LABS: HCG, SERUM QUALITATIVE NEGATIVE (NEGATIVE)
[2018-09-09 20:45] LABS: BLOOD UREA NITROGEN 10 MG/DL (7-18); CALCIUM LEVEL 8.9 MG/DL (8.5-10.1); CARBON DIOXIDE LEVEL 28 MEQ/L (21-32); CHLORIDE LEVEL 106 MEQ/L (98-107); CK-MB VALUE MASS < 1.0 NG/ML (<3.6); CPK CREATINE PHOSPHOKINASE 43 U/L (26-192); CREATININE FOR GFR 0.56 MG/DL (0.55-1.30); FREE T4 0.92 NG/DL (0.76-1.46); GLOMERULAR FILTRATION RATE > 60.0 (>60); GLUCOSE, FASTING 118 MG/DL (70-100); MAGNESIUM LEVEL 2.1 MG/DL (1.8-2.4); MB/CK RELATIVE INDEX 2.33 (< OR =4); POTASSIUM SERUM 3.9 MEQ/L (3.5-5.1); SODIUM LEVEL 140 MEQ/L (136-145); TROPONIN I < 0.02 NG/ML (< 0.10)
[2018-09-09 21:45] VITALS: BP 99/57
--- NOTE | 2018-09-10 13:45 | ECGEPIP ---
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
== END 2018-09-09 22:17 | disposition home or self-care (01) ==
LOC: M ED 19:23
DX: R00.2 Palpitations (principal); R11.0 Nausea; R42 Dizziness and giddiness; I47.1 Supraventricular tachycardia; Z79.899 Other long term (current) drug therapy; Z82.49 Family history of ischemic heart disease and other diseases of the circulatory system; Z88.8 Allergy status to other drugs, medicaments and biological substances; Z86.79 Personal history of other diseases of the circulatory system
CPT/HCPCS: 80048; 82550; 82553; 83735; 84439; 84443; 84703; 85025; 85379; 93005; 93041; 94760; 96374; 99285; J2405